=== PATIENT | male | born 1945 | race Caucasian/White ===

== ENCOUNTER → 2023-11-30 07:32 | Outpatient (REF) | payer MEDICARE, SELFPAY ==
[2023-11-30 10:05] LABS: Glycohemoglobin (HgbA1c) 8.4 % (4.0-5.6)
[2023-11-30 10:15] LABS: ALT (SGPT) 38 U/L (0-50); AST (SGOT) 34 U/L (17-59); Albumin 4.1 g/dl (3.5-5.0); Alkaline Phosphatase 84 U/L (38-126); Blood Urea Nitrogen 21 mg/dl (9-20); Calcium 9.1 mg/dl (8.4-10.2); Carbon Dioxide 25 mmol/L (22-30); Chloride 109 mmol/L (98-107); Glucose 85 mg/dl (70-99); Potassium 4.1 mmol/L (3.5-5.1); Sodium 141 mmol/L (135-145); Total Cholesterol 124 mg/dl (50-199); Total Protein 6.7 g/dl (6.3-8.2); Triglyceride 110 mg/dl (10-149); Very Low Density Lipoprotein 22 mg/dl (0-30); eGFR > 60.00
[2023-11-30 10:24] LABS: HDL Cholesterol 42 mg/dl; LDL Cholesterol, Calculated 60 mg/dl
== END ==
LOC: HWLAB 07:32
PROVIDERS: ATTENDING PHYSICIAN Internal Medicine Endocrinology, Diabetes & Metabolism; FAMILY PHYSICIAN Internal Medicine
DX: E11.65 Type 2 diabetes mellitus with hyperglycemia (principal); Z79.4 Long term (current) use of insulin; E78.2 Mixed hyperlipidemia
CPT/HCPCS: 36415; 80053; 80061; 83036

== ENCOUNTER → 2024-01-04 12:39 | Outpatient (REF) | payer MEDICARE, SELFPAY | LOC: RAD 12:39 | PROVIDERS: ATTENDING PHYSICIAN Surgery Vascular Surgery; FAMILY PHYSICIAN Internal Medicine | DX: I73.9 Peripheral vascular disease, unspecified (principal) | CPT/HCPCS: 93922; 93925 ==

== ENCOUNTER → 2024-02-22 07:42 | Outpatient (REF) | payer MEDICARE, SELFPAY ==
[2024-02-22 12:04] LABS: Glycohemoglobin (HgbA1c) 7.3 % (4.0-5.6)
[2024-02-22 12:05] LABS: ALT (SGPT) 27 U/L (0-50); AST (SGOT) 28 U/L (17-59); Albumin 3.9 g/dl (3.5-5.0); Alkaline Phosphatase 88 U/L (38-126); Blood Urea Nitrogen 25 mg/dl (9-20); Calcium 9.9 mg/dl (8.4-10.2); Carbon Dioxide 29 mmol/L (22-30); Chloride 105 mmol/L (98-107); Glucose 140 mg/dl (70-99); HDL Cholesterol 39 mg/dl; LDL Cholesterol, Calculated 61 mg/dl; Potassium 4.5 mmol/L (3.5-5.1); Sodium 142 mmol/L (135-145); Total Bilirubin 0.8 mg/dl (0.2-1.3); Total Cholesterol 126 mg/dl (50-199); Total Protein 6.5 g/dl (6.3-8.2); Triglyceride 131 mg/dl (10-149); Uric Acid 3.7 mg/dl (3.5-8.5); Very Low Density Lipoprotein 26 mg/dl (0-30); eGFR > 60.00
[2024-02-22 12:15] LABS: TSH 2.74 uIU/ml (0.47-4.68)
[2024-02-22 14:02] LABS: Microalbumin, Random Urine 2.1 mg/dl (0.6-1.7); Microalbumin/creatinine Ratio 21.9 mg/g
== END ==
LOC: HWLAB 07:42
PROVIDERS: ATTENDING PHYSICIAN Internal Medicine Endocrinology, Diabetes & Metabolism; FAMILY PHYSICIAN Internal Medicine
DX: E11.65 Type 2 diabetes mellitus with hyperglycemia (principal); Z79.4 Long term (current) use of insulin; I10 Essential (primary) hypertension; E78.2 Mixed hyperlipidemia; M10.9 Gout, unspecified
CPT/HCPCS: 36415; 80053; 80061; 82043; 82570; 83036; 84443; 84550

== ENCOUNTER → 2024-05-24 09:23 | Outpatient (REF) | payer MEDICARE, SELFPAY ==
[2024-05-24 11:54] LABS: ALT (SGPT) 39 U/L (0-50); AST (SGOT) 37 U/L (17-59); Albumin 4.2 g/dl (3.5-5.0); Alkaline Phosphatase 92 U/L (38-126); Blood Urea Nitrogen 22 mg/dl (9-20); Calcium 9.8 mg/dl (8.4-10.2); Carbon Dioxide 26 mmol/L (22-30); Chloride 108 mmol/L (98-107); Glucose 133 mg/dl (70-99); HDL Cholesterol 41 mg/dl; LDL Cholesterol, Calculated 63 mg/dl; Potassium 4.3 mmol/L (3.5-5.1); Sodium 147 mmol/L (135-145); Total Cholesterol 122 mg/dl (50-199); Total Protein 6.7 g/dl (6.3-8.2); Triglyceride 93 mg/dl (10-149); Very Low Density Lipoprotein 18 mg/dl (0-30); eGFR > 60.00
[2024-05-24 12:18] LABS: TSH 2.34 uIU/ml (0.47-4.68)
[2024-05-24 12:58] LABS: Glycohemoglobin (HgbA1c) 7.5 % (4.0-5.6)
== END ==
LOC: HWLAB 09:23
PROVIDERS: ATTENDING PHYSICIAN Internal Medicine Endocrinology, Diabetes & Metabolism; FAMILY PHYSICIAN Internal Medicine
DX: E11.65 Type 2 diabetes mellitus with hyperglycemia (principal); Z79.4 Long term (current) use of insulin
CPT/HCPCS: 36415; 80053; 80061; 83036; 84443

== ENCOUNTER → 2024-08-29 07:52 | Outpatient (REF) | payer MEDICARE, SELFPAY ==
[2024-08-29 09:51] LABS: ALT (SGPT) 43 U/L (0-50); AST (SGOT) 32 U/L (17-59); Albumin 4.1 g/dl (3.5-5.0); Alkaline Phosphatase 79 U/L (38-126); Blood Urea Nitrogen 20 mg/dl (9-20); Calcium 9.4 mg/dl (8.4-10.2); Carbon Dioxide 27 mmol/L (22-30); Chloride 107 mmol/L (98-107); Glucose 162 mg/dl (70-99); HDL Cholesterol 42 mg/dl; LDL Cholesterol, Calculated 62 mg/dl; Potassium 4.4 mmol/L (3.5-5.1); Sodium 143 mmol/L (135-145); Total Cholesterol 125 mg/dl (50-199); Total Protein 6.5 g/dl (6.3-8.2); Triglyceride 106 mg/dl (10-149); Uric Acid 3.3 mg/dl (3.5-8.5); Very Low Density Lipoprotein 21 mg/dl (0-30); eGFR > 60.00
[2024-08-29 10:21] LABS: TSH 2.92 uIU/ml (0.47-4.68)
[2024-08-29 10:30] LABS: Microalbumin, Random Urine 2.1 mg/dl (0.6-1.7)
[2024-08-29 11:08] LABS: Glycohemoglobin (HgbA1c) 7.7 % (4.0-5.6)
[2024-08-29 15:00] LABS: Microalbumin/creatinine Ratio 22.2 mg/g
== END ==
LOC: HWLAB 07:52
PROVIDERS: ATTENDING PHYSICIAN Internal Medicine Endocrinology, Diabetes & Metabolism; FAMILY PHYSICIAN Internal Medicine
DX: M10.9 Gout, unspecified (principal); E11.65 Type 2 diabetes mellitus with hyperglycemia; Z79.4 Long term (current) use of insulin
CPT/HCPCS: 36415; 80053; 80061; 82043; 82570; 83036; 84443; 84550

== ENCOUNTER → 2024-11-29 07:12 | Outpatient (REF) | payer MEDICARE, SELFPAY ==
[2024-11-29 10:15] LABS: Glycohemoglobin (HgbA1c) 7.8 % (4.0-5.6)
[2024-11-29 10:36] LABS: ALT (SGPT) 26 U/L (0-50); AST (SGOT) 24 U/L (17-59); Albumin 3.8 g/dl (3.5-5.0); Alkaline Phosphatase 81 U/L (38-126); Blood Urea Nitrogen 22 mg/dl (9-20); Calcium 9.5 mg/dl (8.4-10.2); Carbon Dioxide 28 mmol/L (22-30); Chloride 106 mmol/L (98-107); Glucose 113 mg/dl (70-99); HDL Cholesterol 41 mg/dl; LDL Cholesterol, Calculated 53 mg/dl; Sodium 141 mmol/L (135-145); Total Bilirubin 0.8 mg/dl (0.2-1.3); Total Cholesterol 120 mg/dl (50-199); Total Protein 6.3 g/dl (6.3-8.2); Triglyceride 131 mg/dl (10-149); Very Low Density Lipoprotein 26 mg/dl (0-30); eGFR > 60.00
== END ==
LOC: HWLAB 07:12
PROVIDERS: ATTENDING PHYSICIAN Internal Medicine Endocrinology, Diabetes & Metabolism; FAMILY PHYSICIAN Internal Medicine
DX: E11.65 Type 2 diabetes mellitus with hyperglycemia (principal); E78.2 Mixed hyperlipidemia
CPT/HCPCS: 36415; 80053; 80061; 83036

== ENCOUNTER 2025-01-28 17:10 | Inpatient (IN) | payer MEDICARE, SELFPAY ==
[2025-01-28] VITALS (10 sets, daily range): BP systolic 97–153; BP diastolic 41–66; BMI 33.1; BMI 31.7
[2025-01-28 12:23] LABS: Urine Albumin 2+ (Neg - Trace); Urine Bilirubin Negative (Negative); Urine Character Clear (Clear); Urine Color Yellow; Urine Glucose 4+ (Negative); Urine Ketone Negative (Negative); Urine Leukocyte 1+ (Negative); Urine Nitrite Negative (Negative); Urine Occult Blood Negative (Negative); Urine Urobilinogen Negative (Neg - 1+)
[2025-01-28 12:33] LABS: Urine Bacteria Few (Negative); Urine Red Blood Cell 0-2 /HPF (0-2)
--- NOTE | 2025-01-28 13:19 | ED.GENMED ---
History of Present Illness
General
Chief Complaint: Urinary Symptoms
Time Seen by Provider: 01/28/25 13:19
History of Present Illness
History of Present Illness:
TIME OF INITIAL ENCOUNTER: 1:20 PM
HPI: The patient presents due to generalized weakness and earlier overnight had increased urinary frequency. The urinary frequency has resolved. The weakness was so severe that he had trouble walking earlier but overall he feels somewhat improved
currently. No shortness of breath. He has chronic lymphedema of the lower extremities but family noted that the left side looked more swollen. He is on Eliquis.
EXAM:
GENERAL: The patient appears generally weak and debilitated
HEENT: Moist oral mucosa
CARDIOVASCULAR: No murmurs, normal heart rate, regular rhythm, No chest wall tenderness
PULMONARY: No respiratory distress, breath sounds are clear and equal
ABDOMEN: Soft with no peritoneal signs, no tenderness
NEUROLOGIC: Fair strength all extremities, no coordination deficits
PSYCHIATRIC: Appropriate mental status, normal insight and judgement
EXTREMITIES: Marked edema to both lower extremities more so on the left
SKIN: Venous stasis right greater than left, some varicosities noted to the right foot, some wounds noted to the toes of the left foot which was noted in 2022 and vascular at that time recommended conservative management
NUMBER AND COMPLEXITY OF PROBLEMS ADDRESSED AT THE ENCOUNTER
� Chronic conditions affecting care: Diabetes/diabetic neuropathy, gait dysfunction, chronic lower extremity edema, IDDM,
� Acute Exacerbation and/or Progression of Chronic Illness: This is an acute problem
� Differential Diagnosis includes: Progression of lymphedema, no evidence of cellulitis, low suspicion for DVT, urinalysis does not suggest infection
AMOUNT AND/OR COMPLEXITY OF DATA TO BE REVIEWED AND ANALYZED
� I performed an independent evaluation of and my interpretation is:
EKG:
CT:
X-rays: Chest x-ray unremarkable
Laboratory Studies: Urinalysis shows clear yellow urine with 1+ leukocyte esterase but only 3-5 white cells; white count 35.7, hemoglobin normal
Other: Verbal report from Dr. Chamberlain shows no DVT however there is some limitation of visualization
� Review of other/old records: The patient was admitted with cellulitis over 2 years ago
� Clinical information was obtained by an independent historian: I spoke to family at bedside
� Prescriptions/Medications Considered but not given:
� Further testing considered but not performed:
RISK OF COMPLICATIONS AND/OR MORBIDITY OR MORTALITY OF PATIENT MANAGEMENT
� Social determinants of health affecting care: Lives at home
� Discussion with other providers: Hospitalist, Dr. Hare for admission
� Escalation of care including admission/observation vs risk of discharge considered: Given the comorbidities with weakness, labs to be obtained. Will obtain ultrasound imaging as he has unilateral worsening of swelling to the
left lower extremity. There is no evidence of acute cellulitis based on physical examination.
ANY OTHER UPDATES:
The patient has new significant leukocytosis with white count of 35.7 and 88% neutrophils. However vital signs are not consistent with sepsis. There is no clear sign of infection based on physical examination. Urinalysis does not show any clear
sign of infection (1+ leukocyte esterase but less than 5 white cells).
While in the ED at around 3:30 PM, it was identified the patient developed a fever. However workup so far is otherwise relatively unremarkable with exception of the leukocytosis.
There does appear to be some left lower extremity faint erythema�will start antibiotics for cellulitis.
Past History
Past History
ED Past Medical History: Arrthythmia, HTN, Hypercholesterolemia, IDDM and Other (appendicitis back surgery chronic left foot drop kidney stones)
ED Past Surgical History: Appendectomy, Orthopedic and Urological
Social History
Tobacco: Non-smoker
Alcohol: None
Drug: None
Personal:
Living: with family
Employment: Retired
Family History
Family History: Diabetes
Phy Exam
Physical Exam
Physical Exam:
See HPI
Course
Orders/Labs/Results
Orders:
Orders
01/28/25 12:08
Urinalysis Reflex To Culture Urgent
Date Specimen was Collected: 01/28/25
Time Specimen was Collected: 12:07
Urine Microscopic Reflex Cult Urgent
Urine Culture Urgent
MICHELET Source: U
Specimen Description:
Date Specimen was Collected: 01/28/25
Time Specimen was Collected: 12:07
01/28/25 13:26
US Legs, Left [US Periph Venous LOWER Ext LT] Urgent
Comment:
Reason For Exam: chronic b/l lymphedema; acute L worse
01/28/25 14:04
Complete Blood Count/With Diff Urgent
01/28/25 14:37
0.9% Sodium Chloride 500 ml [Nss] 500 ml IV BOLUS
CR Chest - 2 Views Urgent
Comment:
Reason For Exam: WBC 35 new
01/28/25 14:51
Acetaminophen [Tylenol] 1,000 mg PO NOW STA
01/28/25 15:04
Comprehensive Metabolic Panel Urgent
Lactic Acid Q4H
Comment: CANCEL 2nd LACTIC ACID IF 1st LACTIC ACID IS LESS THAN 2
NT-proBNP Urgent
Blood Culture Q30M
MICHELET Source: Blood/Venous
Specimen Description:
01/28/25 15:20
Blood Culture Q30M
MICHELET Source: Blood/Venous
Specimen Description:
01/28/25 16:23
CeFAZolin 2 GRAM [Ancef] 2 grams in 10 ml IV NOW
01/28/25 18:45
Lactic Acid Q4H
Comment: CANCEL 2nd LACTIC ACID IF 1st LACTIC ACID IS LESS THAN 2
Abnormal Lab Results
01/28/25 01/28/25 01/28/25
12:08 14:04 15:04
WBC 35.7 H 10^3/uL
(4.8-10.8)
MCH 31.7 H pg
(27.0-31.0)
Abs Immat Gran (auto) 1.1 H 10^3/uL
(0-0.05)
Absolute Neuts (auto) 31.5 H 10^3/uL
(1.4-6.5)
Absolute Monos (auto) 1.2 H 10^3/uL
(0.1-0.6)
Immature Gran % 3.1 H %
(0-0.5)
Neutrophils % 88.3 H %
(42.2-75.2)
Lymphocytes % 4.7 L %
(20.5-51.1)
Chloride 108 H mmol/L
(98-107)
BUN 24 H mg/dl
(9-20)
Glucose 120 H mg/dl
(70-99)
Lactic Acid 2.4 H mmol/L
(0.7-2.0)
Total Bilirubin 1.8 H mg/dl
(0.2-1.3)
Leukocyte Esterase Rfl 1+ A
(Negative)
Urine Bacteria (Reflex) Few A
(Negative)
Urine Glucose 4+ A
(Negative)
Urine Albumin (Reflex) 2+ A
(Neg - Trace)
01/28/25 14:04
01/28/25 15:04
Vital Signs
Initial and Last Documented VS:
Initial Vital Signs
Temp Pulse Resp BP Pulse Ox
36.8 C 91 16 120/55 99
01/28/25 12:02 01/28/25 12:02 01/28/25 12:02 01/28/25 12:02 01/28/25 12:02
Last Documented Vital Signs
Temp Pulse Resp BP Pulse Ox
37.6 C 88 18 153/66 99
01/28/25 16:13 01/28/25 15:15 01/28/25 15:15 01/28/25 15:11 01/28/25 15:15
*Critical Care Note
Total Time (30-74mins, 75-104mins- exclusive of procedures): Not Applicable
ED Attending Note
-
Portions of this chart may have been created with voice recognition software.� Occasional wrong word or��sound alike� substitutions may have occurred due to the inherent limitations of voice recognition software.
Discharge Plan
Departure
Patient Disposition: Admit
Date of Disposition: 01/28/25
Time of Disposition: 16:26
Presentation/result/management discussed w/ accepting MD/DO: Hospitalist
Discharge Problem:
Sepsis
Prescriptions:
No Action
allopurinol 300 MG tablet
300 mg PO DAILY
warfarin [Jantoven] 2 MG tablet
4 mg PO QPM
Patient Comments:
01/21/2021: take w/ 2.5mg = 4.5mg
09/26/22: took 6mg just x 1
hydrochlorothiazide 25 MG tablet
25 mg PO MOWEFR
Patient Comments:
01/21/2021: Pt unsure if supposed to be taking. last filled 11/28/20
irbesartan 150 MG tablet
150 mg PO DAILY
Jardiance 25 MG tablet
25 mg PO DAILY
Insulin Pump [Patient's Own Insulin Pump:] 1 UNITS Pump.Resvr
0 ea SC .CONTINUOUS
Patient Comments:
09/16/22: Pt uses Novolog U-100, gives himself bolus with meals
Rx Instructions:
09/16/22: Pt uses Novolog U-100
Trulicity 1.5 mg/0.5 mL Pen Injector
1.5 mg SC LIM
white petrolatum [Hydrophor] 1 APPLIC ointment
1 applic topical DAILY
metoprolol succinate 25 mg Tablet Extended Release 24 Hr
25 mg PO BID 30 Days Qty: 60 0RF
cefazolin 10 gram Recon Soln
2 g IV Q6H 7 Days Qty: 10 0RF
Rx Instructions:
last day 10/09/22
tramadol 50 mg tablet
50 mg PO Q8H PRN (Reason: Mod sev pain) 5 Days Qty: 12 0RF
Rx Instructions:
as needed for moderate to severe pain
Referrals:
Oliver Talley MD [Family Provider] -
Interventions
Interventions:
*Risk Screen - Suicide Last Done: 01/28/25 12:02
*General Assessment Last Done: 01/28/25 13:19
*Neglect/Abuse Screening Last Done: 01/28/25 12:02
*ED- Fall Risk Assessment Last Done: 01/28/25 13:19
*ED COVID-19 Vaccine History Last Done: 01/28/25 13:19
ED-Male Genitourinary Assessment Last Done: 01/28/25 13:21
Discharge Date and Time
Print Language: [place]
--- NOTE | 2025-01-28 13:24 | EDRN ---
Dr. cunha in room w/pt.
[2025-01-28 14:15] LABS: Hematocrit 48.9 % (39.0-52.0); Hemoglobin 16.6 g/dL (13.0-18.0); Mean Corp Hgb Conc. 33.9 g/dL (33.0-37.0); Mean Corpuscular Hgb 31.7 pg (27.0-31.0); Mean Corpuscular Volume 93.5 fL (80.0-94.0); Mean Platelet Volume 9.8 fL (7.4-10.4); Platelet Count 149 10^3/uL (130-400); Red Blood Cell Count 5.23 10^6/uL (4.70-6.10); Red Cell Dist. Width 14.4 % (11.5-14.5); White Blood Cell Count 35.7 10^3/uL (4.8-10.8)
--- NOTE | 2025-01-28 14:15 | EDRN ---
Dr. Arenas was informed of pt's upper R leg pain and headache, both rated 8/10 enroute to [facility].
[2025-01-28 14:31] LABS: % Basophils 0.5 % (0-2); % Immature Granulocytes 3.1 % (0-0.5); % Lymphocytes 4.7 % (20.5-51.1); % Monocytes 3.4 % (1.7-9.3); % Neutrophils 88.3 % (42.2-75.2); Absolute Basophils 0.2 10^3/uL (0-0.2); Absolute Immature Granulocytes 1.1 10^3/uL (0-0.05); Absolute Lymphocytes 1.7 10^3/uL (1.2-3.4); Absolute Monocytes 1.2 10^3/uL (0.1-0.6); Absolute Neutrophils 31.5 10^3/uL (1.4-6.5); Nucleated Red Blood Cells % 0 % (-)
[2025-01-28] MEDS: NSS 500 IV (15:16)
[2025-01-28] MEDS: TYLENOL 1000 MG PO (15:18)
[2025-01-28 15:25] LABS: Lactic Acid 2.4 mmol/L (0.7-2.0)
[2025-01-28 15:33] LABS: ALT (SGPT) 45 U/L (0-50); AST (SGOT) 48 U/L (17-59); Albumin 4.1 g/dl (3.5-5.0); Alkaline Phosphatase 75 U/L (38-126); Blood Urea Nitrogen 24 mg/dl (9-20); Calcium 9.6 mg/dl (8.4-10.2); Carbon Dioxide 25 mmol/L (22-30); Chloride 108 mmol/L (98-107); Estimated Creatinine Clearance 85 ml/min; Glucose 120 mg/dl (70-99); Potassium 4.8 mmol/L (3.5-5.1); Sodium 140 mmol/L (135-145); Total Bilirubin 1.8 mg/dl (0.2-1.3); Total Protein 6.7 g/dl (6.3-8.2); eGFR > 60.00
[2025-01-28 15:35] LABS: NT-proBNP 1980 pg/ml
--- NOTE | 2025-01-28 16:00 | EDRN ---
Dr. Epps in to speak w/ pt and spouse.
--- NOTE | 2025-01-28 16:24 | HPS.HSE ---
Family Physician
-
Family Physician: Oliver Talley
Chief Complaint
-
generlalized weakness
History of Present Illness
79-year-old with past medical history of hypertension, lymphedema, peripheral artery disease, A-fib presented to us with generalized weakness since last. Pnt stated urinary frequency all night which resolved now. He had a fever of 100 this
morning. As per , his left lower extremity is more redder and swollen than usual. Patient complained of headache. Patient has chronic cough. Denies short of breath. Denied chest pain. Patient denied any abdominal pain, nausea, vomiting or
diarrhea. Patient denied dysuria,hematuria.
Upon arrival he was noted to have elevated WBCs, temp of 101. Patient received Ancef, Tylenol, normal saline in ER. Admitted for further management
Medical History
Past Medical History
Past Medical History: Reports Other
Additional Past Medical History:
Hypertension, lymphedema, peripheral artery disease, hypertension, A-fib, type 2 diabetes, gout, obstructive sleep apnea, kidney stones, GERD,
Past Surgical History: Reports Other
Additional Past Surgical History:
Hernia repair, cardiac ablation, tonsillectomy, kidney surgery, appendectomy, ex lap, evacuation of hematoma, partial omentectomy, lithotripsy, appendectomy, left hallux toenail removed
Social History
Tobacco: Non-smoker
Alcohol: None
Drug: None
Personal:
Living: With Family
Family History
Family History: Not pertinent
Allergies / Home Medications
Allergies reflects when Allergies were last updated in [email or web address].
Home Medications with original date entered in [email or web address]
Allergy/Medication List:
Allergies
Allergy/AdvReac Type Severity Reaction Status Date / Time
Penicillins Allergy Mild Rash Verified 01/28/25 12:04
amoxicillin trihydrate Allergy Rash Verified 01/28/25 12:04
[From Augmentin]
potassium clavulanate Allergy Rash Verified 01/28/25 12:04
[From Augmentin]
rifampin Allergy Rash Verified 01/28/25 12:04
Sulfa (Sulfonamide Allergy Rash Verified 01/28/25 12:04
Antibiotics)
sulfamethoxazole Allergy Rash Verified 01/28/25 12:04
[From Bactrim DS]
trimethoprim Allergy Rash Verified 01/28/25 12:04
[From Bactrim DS]
Home Medications
allopurinol 300 mg tablet 300 mg PO DAILY Gout 09/10/16
Insulin Pump [Patient's Own Insulin Pump:] 0 ea SC .CONTINUOUS Diabetes 01/21/21
empagliflozin 25 mg tablet (Jardiance) 25 mg PO DAILY Diabetes 01/21/21
hydrochlorothiazide 25 mg tablet 25 mg PO MOWEFR Blood pressure 01/21/21
irbesartan 150 mg tablet 150 mg PO DAILY Blood pressure 01/21/21
warfarin 2 mg tablet (Jantoven) 4 mg PO QPM Blood clot prevention/tx 01/21/21
dulaglutide 1.5 mg/0.5 mL subcutaneous pen injector (Trulicity) 1.5 mg SC LIM Diabetes 09/16/22
white petrolatum 42 % topical ointment (Hydrophor) 1 applic topical DAILY to leg wound 09/16/22
metoprolol succinate 25 mg tablet,extended release 24 hr 25 mg PO BID Heart disease/condition 30 days #60 tabs 09/23/22
cefazolin 10 gram solution for injection 2 g IV Q6H 7 days #10 ea 10/02/22
tramadol 50 mg tablet 50 mg PO Q8H PRN Mod sev pain 5 days #12 tabs 10/02/22
Review of Systems
-
Constitutional: Reports Fatigue
EENT: Reports No Symptoms
Respiratory: Reports No Symptoms
Cardiac: Reports No Symptoms
Abdomen/GI: Reports No Symptoms
: Reports Frequency
Musculoskeletal: Reports No Symptoms
Skin: Reports No Symptoms
Neurological: Reports Headache and Weakness
Endocrine: Reports No Symptoms
Hematologic/Lymphatic: Reports No Symptoms
Psych: Reports No Symptoms
Physical Exam
Vital Signs
Vital Signs
Temp Pulse Resp BP Pulse Ox
99.6 F 88 18 153/66 99
01/28/25 16:13 01/28/25 15:15 01/28/25 15:15 01/28/25 15:11 01/28/25 15:15
Physical Exam
General: Well Developed, Well Nourished and No Apparent Distress
HEENT: NormoCephalic, Moist mucous membranes and Atraumatic
Respiratory: Clear
Cardiac: S1/S2 and Regular Rhythm; No Murmur or Rub
GI: Soft, Non Tender, Non Distended and Normal Bowel Sounds; No Organomegaly
Rectal: Deferred by Provider
Musculoskeletal: No Clubbing, No Cyanosis and Other (Bilateral lower extremities lymphedema. Left leg more swollen)
Skin: No Rash
Neuro: Nonfocal/grossly intact
Psych: Calm
Laboratory Results
-
01/28/25 14:04
01/28/25 15:04
Laboratory Results
Lactic Acid 2.4 mmol/L (0.7-2.0) H 01/28/25 15:04
Total Bilirubin 1.8 mg/dl (0.2-1.3) H 01/28/25 15:04
AST 48 U/L (17-59) 01/28/25 15:04
ALT 45 U/L (0-50) 01/28/25 15:04
Alkaline Phosphatase 75 U/L (38-126) 01/28/25 15:04
Data Reviewed
-
Diagnostic Radiology: Report Reviewed by me
Lab Data: Labs Reviewed by me
Impression/Plan
-
# Left lower extremity cellulitis
-Sepsis as evident by WBC 35.7, temp 101
- Chest x-ray negative for acute cardiopulmonary process
- Duplex pending
- Blood and urine culture sent from ER
- IV Ancef continued
- Tylenol as needed for fever and pain
# Generalized weakness likely secondary to cellulitis
- PT/OT consulted
# Gout
- Allopurinol
# Essential hypertension
- HCTZ, irbesartan
# Paroxysmal A-fib
- Obtain EKG
- Metoprolol
- Patient is on eliquis
# type 2 diabetes
- Patient is on insulin pump
-Carb controlled diet
-Jardiance continued
-DM LABORATORY IMMUNOLOGIST consulted
# DVT prophylaxis
- On Eliquis
# CODE STATUS
- Full code
[2025-01-28] MEDS: ANCEF 10 IV ×2 (17:20→23:33)
--- NOTE | 2025-01-28 17:35 | W.PN.UPDATE ---
Update Note
Progress Note Update
This is an addendum to H&P written Mar Mckeon on 01/28/2025. Patient seen examined independently with POLYGRAPH OPERATOR.
79-year-old male past medical history of diabetes on insulin pump, paroxysmal atrial fibrillation on Eliquis, chronic lower extremity lymphedema, prior left lower extremity wounds, hypertension, gout, presenting with generalized weakness, fevers and
chills, increased urinary frequency. Urinary frequency now resolved. Family noticed left leg looks more swollen.
Fever 101.
Patient with sepsis secondary to cellulitis of left lower extremity superimposed on bilateral lower extremity lymphedema.
Check blood cultures. IV fluids. Cefazolin. Outpatient follow-up with lymphedema clinic.
--- NOTE | 2025-01-28 17:50 | EDRN ---
Pt eating boxed lunch at this time.
[2025-01-28 18:14] LABS: PT 16.4 Sec (11.4-14.6)
--- NOTE | 2025-01-28 18:35 | EDRN ---
Second Lactic drawn at this time.
[2025-01-28] MEDS: NSS 1000 IV (18:41)
[2025-01-28] MEDS: ELIQUIS 5 MG PO (20:17)
[2025-01-28] MEDS: ROXICODONE 5 MG PO (20:17)
[2025-01-28] MEDS: TYLENOL 650 MG PO (21:09)
[2025-01-28 21:47] LABS: Glucose - Point of Care 129 mg/dl (70-99)
[2025-01-28] MEDS: PATIENT'S OWN INSULIN PUMP SC (21:55)
[2025-01-29] VITALS (7 sets, daily range): BP systolic 101–124; BP diastolic 50–59
[2025-01-29] MEDS: NSS 1000 IV ×3 (04:15→23:53)
[2025-01-29] MEDS: TYLENOL 650 MG PO ×3 (06:24→19:58)
[2025-01-29 07:50] LABS: PT 19.3 Sec (11.4-14.6)
[2025-01-29 07:55] LABS: Glucose - Point of Care 99 mg/dl (70-99)
[2025-01-29 07:57] LABS: Hematocrit 44.1 % (39.0-52.0); Hemoglobin 14.8 g/dL (13.0-18.0); Mean Corp Hgb Conc. 33.6 g/dL (33.0-37.0); Mean Corpuscular Hgb 31.6 pg (27.0-31.0); Mean Corpuscular Volume 94.2 fL (80.0-94.0); Mean Platelet Volume 10.8 fL (7.4-10.4); Platelet Count 120 10^3/uL (130-400); Red Blood Cell Count 4.68 10^6/uL (4.70-6.10); Red Cell Dist. Width 14.5 % (11.5-14.5); White Blood Cell Count 22.2 10^3/uL (4.8-10.8)
[2025-01-29 08:22] LABS: Blood Urea Nitrogen 23 mg/dl (9-20); Calcium 8.6 mg/dl (8.4-10.2); Carbon Dioxide 24 mmol/L (22-30); Chloride 110 mmol/L (98-107); Estimated Creatinine Clearance 92 ml/min; Glucose 90 mg/dl (70-99); Potassium 3.7 mmol/L (3.5-5.1); Sodium 141 mmol/L (135-145); eGFR > 60.00
[2025-01-29] MEDS: AVAPRO 75 MG PO (08:27)
[2025-01-29] MEDS: TOPROL XL 25 MG PO (08:27)
[2025-01-29] MEDS: ANCEF 10 IV ×3 (08:28→23:54)
[2025-01-29] MEDS: FARXIGA 10 MG PO (08:28)
[2025-01-29] MEDS: ELIQUIS 5 MG PO ×2 (08:28→19:57)
[2025-01-29] MEDS: ZYLOPRIM 300 MG PO (08:28)
[2025-01-29] MEDS: PATIENT'S OWN INSULIN PUMP SC ×4 (08:28→22:02)
[2025-01-29] MEDS: LIPITOR 20 MG PO (08:28)
[2025-01-29 12:00] LABS: Glucose - Point of Care 162 mg/dl (70-99)
--- NOTE | 2025-01-29 12:25 | W.PN.HOSP.TC ---
Today's Communication/Plan
-
Continue IV cefazolin
Follow CBC and cultures
Monitor leg
Supportive care for lymphedema
Assessment / Plan
Assessment / Plan
#Sepsis secondary to nonpurulent cellulitis of LLE
#Chronic lymphedema
-Redness to the lateral LLE, likely infection superimposed on lymphedema, poor antibiotic penetrance
-SIRS positive upon arrival with profound leukocytosis of 35.7, temperature 101 �F, tachycardia
-Was started on IV cefazolin upon arrival following blood and urine cultures
-No signs of purulence on exam today, cultures remain pending, WBC down to 22
-Continue with IV cefazolin empirically, trend CBC and temperature curve, monitor clinically
-Continue with supportive measures for lymphedema including stockings and leg elevation
-Supportive IV fluids and monitor vitals
-OP follow-up with lymphedema clinic
#Generalized weakness
-Likely secondary to neuropathy, deconditioning, lymphedema with cellulitis
-Pending PT/OT consult
#Paroxysmal AF
-Status post pulmonary vein isolation; home meds include Eliquis and metoprolol XL
-Has been in NSR here with heart rate WNL as of this morning
-Continue on telemetry
#IDDM on insulin pump
#Diabetic neuropathy
-Suboptimally controlled with last A1c in November at 7.8%; C/B neuropathy
-Home regimen includes insulin pump and Jardiance daily
-Diabetes team consulted for insulin pump management
-Blood glucose goal 140-180 ideally
#Primary hypertension
-No known history of hypertensive systemic disease
-Home medications include HCTZ and irbesartan, also on metoprolol XL
-Irbesartan with added kidney protective effects in context of diabetes
-Blood pressure currently stable
#Gout
-Home medications include allopurinol 300 mg
-No signs of tophaceous disease on exam
-No signs of flare
#GERARDO not on CPAP
#Obesity with metabolic syndrome
-BMI 31.7 which affects all aspects of care
-No known history of pulmonary hypertension
-Should have OP follow-up with pulmonology
Diet: Carb controlled diet
DVT prophylaxis: Home Eliquis
CODE STATUS: Full code
Anticipated Discharge: 24 - 48 hours
Subjective/Interval History
-
Date of Service: January 29, 2025
Seen and examined at the bedside. No acute events reported overnight. AFVSS this morning
Leukocytosis downtrending on antibiotics. Hemoglobin down trended secondary to dilutional effect.
Patient states his leg is feeling better. Denies any new complaints as of this morning
Objective Data
-
Labs:
Laboratory Results
01/29/25
06:23
WBC 22.2 H
Hgb 14.8
Hct 44.1
Plt Count 120 L
PT 19.3 H
INR 1.60
Sodium 141
Potassium 3.7
Chloride 110 H
Carbon Dioxide 24
BUN 23 H
Creatinine 0.9
Glucose 90
Calcium 8.6
Vital Signs:
Vital Signs
Temp Pulse Resp BP Pulse Ox
99.2 F 71 20 101/50 97
01/29/25 11:00 01/29/25 11:00 01/29/25 11:00 01/29/25 11:00 01/29/25 11:00
I&O
01/28/25 01/29/25 01/30/25
06:59 06:59 06:59
Intake Total 1680 / 1680
Output Total 1000 / 1000
Balance 680 / 680
Review of Systems
-
History Source: Patient
All other systems: Reviewed and negative
Physical Exam
-
General: Well Developed, No Apparent Distress, Comfortable and Obese
HEENT: Normocephalic, Atraumatic, Moist Mucous Membranes and Anicteric
Respiratory: Clear to Auscultation and Non Labored Respirations; Negative Accessory Resp Muscle Use
Cardiac: Regular Rhythm and S1/S2; Negative Murmur, Rub or Gallop
GI: Soft, Nontender, Nondistended and Normal Bowel Sounds
Musculoskeletal: No Clubbing, No Cyanosis and Other (1+ nonpitting edema bilaterally)
Skin: Warm, Dry and Rash (Erythematous macular rash of the lateral LLE at level of calf, no purulence or underlying fluctuance)
Neuro: AO x 3 and Nonfocal/Grossly Intact
Psych: Calm
Data Reviewed
-
Labs: Labs Reviewed by me and Discussed with Patient
[2025-01-29] MEDS: MIRALAX 17 GRAMS PO (15:32)
[2025-01-29 17:24] LABS: Glucose - Point of Care 211 mg/dl (70-99)
[2025-01-29 21:51] LABS: Glucose - Point of Care 137 mg/dl (70-99)
[2025-01-30] VITALS (7 sets, daily range): BP systolic 114–142; BP diastolic 50–74
[2025-01-30 04:07] LABS: Glucose - Point of Care 139 mg/dl (70-99)
[2025-01-30 07:25] LABS: INR 1.31; PT 16.8 Sec (11.4-14.6)
[2025-01-30 07:28] LABS: Glucose - Point of Care 114 mg/dl (70-99)
[2025-01-30 07:41] LABS: Blood Urea Nitrogen 23 mg/dl (9-20); Calcium 8.5 mg/dl (8.4-10.2); Carbon Dioxide 26 mmol/L (22-30); Chloride 111 mmol/L (98-107); Estimated Creatinine Clearance 104 ml/min; Glucose 117 mg/dl (70-99); Sodium 140 mmol/L (135-145); eGFR > 60.00
[2025-01-30 07:50] LABS: % Basophils 0.3 % (0-2); % Eosinophils 0.5 % (0-6); % Immature Granulocytes 0.5 % (0-0.5); % Lymphocytes 10.3 % (20.5-51.1); % Neutrophils 82.4 % (42.2-75.2); Absolute Eosinophils 0.1 10^3/uL (0-0.7); Absolute Immature Granulocytes 0.1 10^3/uL (0-0.05); Absolute Lymphocytes 1.5 10^3/uL (1.2-3.4); Absolute Monocytes 0.9 10^3/uL (0.1-0.6); Absolute Neutrophils 12.1 10^3/uL (1.4-6.5); Hemoglobin 14.5 g/dL (13.0-18.0); Mean Corpuscular Hgb 31.2 pg (27.0-31.0); Mean Corpuscular Volume 94.6 fL (80.0-94.0); Mean Platelet Volume 10.6 fL (7.4-10.4); Nucleated Red Blood Cells % 0 % (-); Platelet Count 112 10^3/uL (130-400); Red Blood Cell Count 4.65 10^6/uL (4.70-6.10); Red Cell Dist. Width 14.5 % (11.5-14.5); White Blood Cell Count 14.7 10^3/uL (4.8-10.8)
[2025-01-30] MEDS: FARXIGA 10 MG PO (07:53)
[2025-01-30] MEDS: AVAPRO 75 MG PO (07:53)
[2025-01-30] MEDS: ELIQUIS 5 MG PO ×2 (07:53→20:22)
[2025-01-30] MEDS: ORETIC 25 MG PO (07:54)
[2025-01-30] MEDS: TOPROL XL 25 MG PO (07:54)
[2025-01-30] MEDS: LIPITOR 20 MG PO (07:54)
[2025-01-30] MEDS: ANCEF 10 IV (07:56)
[2025-01-30] MEDS: ZYLOPRIM 300 MG PO (07:56)
[2025-01-30] MEDS: PATIENT'S OWN INSULIN PUMP SC ×2 (08:06→22:12)
--- NOTE | 2025-01-30 08:20 | PN.DE.MGMTRT ---
Insulin Management
- -
01/30/2025: Diabetes Management consult for insulin pump
This is a 79 year old male well know to me from previous hospital visit, LLE Cellulitis. PMH: HTN, HLD, A-Fib, sleep apnea, IDDM.
Routinely follows with Dr. Braden. Diabetes is managed via an insulin pump, Medtronic 780 with NovoLog insulin and Quick Set infusion sets with the DexCom G7. In addition to pump patient also takes Jardiance 25 mg daily. A1C 7.8%, Cr 0.8. eGFR
>60.
Pt is A/Ox3, sitting up in chair, offers no complaints, able to discuss diabetes care plan. States he does not follow any particular diet at home. Patient is able to utilize his pump without difficulty. Glucose has been stable and in range 99 to
211, FBG 117 V, 114 POC.
Will make no change to pump settings.
Pump settings as follows:
12am 1.3 I:CHO ratio 4
3am 2.20 Correction factor 1:20
8am 2.0 Target: 12am 110 - 125
24 hour basal total 46.9 5am 90 - 110
10pm 110 - 125
Active insulin [address] orders for patient to use own insulin pump. Discussed with Nurse. Pump work sheet to be placed at bedside and explained to pt.
Diabetes History
- -
Type of Diabetes: 2 requiring insulin
Pre-Admission Diabetes Regimen
01/29/25 01/30/25
06:23 06:19
Creatinine 0.9 0.8
Insulin Pump Settings
IP Diabetes Regimen
01/29/25 01/29/25 01/29/25
06:23 11:57 17:21
Glucose 90
POC Glucose 162 H 211 H
01/29/25 01/30/25 01/30/25
21:49 04:05 06:19
Glucose 117 H
POC Glucose 137 H 139 H
01/30/25
07:27
Glucose
POC Glucose 114 H
Meal type: Breakfast
Amount consumed: 90%
Patient Education
[2025-01-30 11:42] LABS: Glucose - Point of Care 151 mg/dl (70-99)
--- NOTE | 2025-01-30 13:26 | W.PN.HOSP.TC ---
Today's Communication/Plan
-
Transition cefazolin to CTX plus Flagyl
Tylenol for likely right hip OA
Bowel regimen
Assessment / Plan
Assessment / Plan
#Sepsis secondary to nonpurulent cellulitis of LLE
#Chronic lymphedema
-Likely infection superimposed on lymphedema with poor antibiotic penetrance; likely polymicrobial with IDDM
-SIRS positive upon arrival with profound leukocytosis of 35.7, temperature 101 �F, tachycardia
-Was started on IV cefazolin upon arrival following blood and urine cultures; cultures NGTD
-White count downtrending however leg does not clinically appear much improved and is still quite red
-Transition cefazolin to IV ceftriaxone with Flagyl for polymicrobial coverage (allergy to penicillins)
-Continue with supportive measures for lymphedema including stockings and leg elevation
-Supportive IV fluids PRN and monitor vitals
-OP follow-up with lymphedema clinic
-If not improving 01/31 consider ID consult
#Right groin pain
-Patient was complaining of intermittent right groin pain that responded to Tylenol
-Has history of hernia s/p surgical repair, examined without any signs of hernia or strangulation
-Obtained x-ray that showed bilateral moderate hip osteoarthritis
-Suspect groin pain is radiated pain from his right hip, continue with Tylenol for now
#Constipation
-States he has not had a bowel movement since 01/27 which is unusual for him
-Did not respond to MiraLAX on 01/29, ordered senna and bisacodyl suppository today
#Generalized weakness
-Likely secondary to neuropathy, deconditioning, lymphedema with cellulitis
-Pending PT/OT consult
#Paroxysmal AF
-Status post pulmonary vein isolation; home meds include Eliquis and metoprolol XL
-Has been in NSR here with heart rate WNL as of this morning
-Continue on telemetry
#IDDM on insulin pump
#Diabetic neuropathy
-Suboptimally controlled with last A1c in November at 7.8%; C/B neuropathy
-Home regimen includes insulin pump and Jardiance daily
-Diabetes team consulted for insulin pump management
-Blood glucose goal 140-180 ideally
#Primary hypertension
-No known history of hypertensive systemic disease
-Home medications include HCTZ and irbesartan, also on metoprolol XL
-Irbesartan with added kidney protective effects in context of diabetes
-Blood pressure currently stable
#Gout
-Home medications include allopurinol 300 mg
-No signs of tophaceous disease on exam
-No signs of flare
#GERARDO not on CPAP
#Obesity with metabolic syndrome
-BMI 31.7 which affects all aspects of care
-No known history of pulmonary hypertension
-Should have OP follow-up with pulmonology
Diet: Carb controlled diet
DVT prophylaxis: Home Eliquis
CODE STATUS: Full code
Anticipated Discharge: > 48 hours
Subjective/Interval History
-
Date of Service: January 30, 2025
Seen and examined at the bedside. No acute events reported overnight. AFVSS this morning
White cell count downtrending. Leg does not seem significantly improved, still red and warm. Patient also states he needs to have a bowel movement
Otherwise denies new complaints. at bedside and updated
Objective Data
-
Labs:
Laboratory Results
01/30/25
06:19
WBC 14.7 H
Hgb 14.5
Hct 44.0
Plt Count 112 L
PT 16.8 H
INR 1.31
Sodium 140
Potassium 4.0
Chloride 111 H
Carbon Dioxide 26
BUN 23 H
Creatinine 0.8
Glucose 117 H
Calcium 8.5
Vital Signs:
Vital Signs
Temp Pulse Resp BP Pulse Ox
98.9 F 69 18 141/69 99
01/30/25 11:46 01/30/25 11:46 01/30/25 11:46 01/30/25 11:46 01/30/25 11:46
I&O
01/29/25 01/30/25 01/31/25
06:59 06:59 06:59
Intake Total 1680 / 1680 2160 / 2160
Output Total 1000 / 1000 1600 / 1600
Balance 680 / 680 560 / 560
Review of Systems
-
History Source: Patient
All other systems: Reviewed and negative
Physical Exam
-
General: Well Developed, No Apparent Distress, Comfortable and Obese
HEENT: Normocephalic, Atraumatic, Moist Mucous Membranes and Anicteric
Respiratory: Clear to Auscultation and Non Labored Respirations; Negative Accessory Resp Muscle Use
Cardiac: Regular Rhythm and S1/S2; Negative Murmur, Rub or Gallop
GI: Soft, Nontender, Nondistended and Normal Bowel Sounds
Musculoskeletal: No Clubbing, No Cyanosis and Other (Chronic nonpitting edema with skin change to bilateral LEs)
Skin: Warm, Dry and Rash (LLE with redness extending up to the knee, warmth to the tissue. No purulence or fluctuance )
Neuro: AO x 3 and Nonfocal/Grossly Intact
Psych: Calm
Data Reviewed
-
Labs: Labs Reviewed by me, Discussed with Patient and Discussed with Family
[2025-01-30] MEDS: FLAGYL 500 MG 100 IV ×2 (14:11→21:02)
[2025-01-30] MEDS: STERILE WATER FOR INJECTION 10 ML IV (14:11)
[2025-01-30] MEDS: ROCEPHIN 1000 MG IV (14:11)
[2025-01-30] MEDS: PATIENT'S OWN INSULIN PUMP 2.6 UNITS SC (14:20)
--- NOTE | 2025-01-30 15:22 | VNURNOTE ---
Home Health Liaison met with patient and spouse at bedside to discuss [facility] nurse/therapy, visits, schedule and homebound status. Patient is agreeable and understands that visits at home will be 2-3 x per week to assess and teach medical management.
He has had [facility] in the past. Patient is aware that [facility] will contact them for start of care in 1-2 days after discharge from . [facility] referral completed in [facility].
Watching if IV antibx ordered at [place]- [facility] will not be able to accept if home IV antibx d/t insurance. SEBASTIÁN Guo aware. Patient and spouse aware.
[2025-01-30] MEDS: TYLENOL 650 MG PO (16:28)
--- NOTE | 2025-01-30 17:09 | CM ---
Alert awake oriented patient who lives with his Greg who lives in a 1 story home with 1 step to enter. He is independent in driving and in all activities of daily living.Spoke with Greg. He uses cane walker .Offered [facility]N he requested [facility]
.Eloisa Chambers [facility] liaison TT referral. .His will drive him home.
Pt [facility] hx / No SNF history
Pharmacy [facility]
PCP DR Graeme Talley
PLAN Home with [facility]
[2025-01-30 17:13] LABS: Glucose - Point of Care 139 mg/dl (70-99)
[2025-01-30] MEDS: PATIENT'S OWN INSULIN PUMP 1.1 UNITS SC (17:27)
[2025-01-30] MEDS: SENNA SYRUP PO (21:08)
[2025-01-30 21:12] LABS: Glucose - Point of Care 205 mg/dl (70-99)
--- NOTE | 2025-01-30 23:02 | PTCARENOTE ---
Pt's HS blood glucose 205. Pt unaware of insulin dosing per insulin pump. Will pass on in report to let staff educator know about pt needing reinforcement about maintaining insulin pump/dosing. Care remains ongoing.
[2025-01-31 03:13] VITALS: BP 126/61
[2025-01-31] MEDS: FLAGYL 500 MG 100 IV ×2 (05:00→14:07)
[2025-01-31 06:53] LABS: % Basophils 0.5 % (0-2); % Eosinophils 1.6 % (0-6); % Immature Granulocytes 0.6 % (0-0.5); % Lymphocytes 16.5 % (20.5-51.1); % Monocytes 7.6 % (1.7-9.3); % Neutrophils 73.2 % (42.2-75.2); Absolute Basophils 0.1 10^3/uL (0-0.2); Absolute Eosinophils 0.2 10^3/uL (0-0.7); Absolute Immature Granulocytes 0.1 10^3/uL (0-0.05); Absolute Lymphocytes 1.7 10^3/uL (1.2-3.4); Absolute Monocytes 0.8 10^3/uL (0.1-0.6); Absolute Neutrophils 7.7 10^3/uL (1.4-6.5); Hematocrit 42.4 % (39.0-52.0); Hemoglobin 14.1 g/dL (13.0-18.0); Mean Corp Hgb Conc. 33.3 g/dL (33.0-37.0); Mean Corpuscular Hgb 31.1 pg (27.0-31.0); Mean Corpuscular Volume 93.6 fL (80.0-94.0); Mean Platelet Volume 11.1 fL (7.4-10.4); Nucleated Red Blood Cells % 0 % (-); Platelet Count 113 10^3/uL (130-400); Red Blood Cell Count 4.53 10^6/uL (4.70-6.10); White Blood Cell Count 10.5 10^3/uL (4.8-10.8)
[2025-01-31 07:02] LABS: INR 1.26; PT 16.3 Sec (11.4-14.6)
--- NOTE | 2025-01-31 07:16 | PN.DE.MGMTRT ---
Insulin Management
- -
01/31/2025: Diabetes Management consult for insulin pump, follow up
Patient admitted 01/28 with LLE cellulitis, know to me from previous hospital admissions and as outpatient. PMH: HTN, HLD, A-Fib, sleep apnea, IDDM.
Routinely follows with Dr. Braden. Diabetes is managed via an insulin pump, Medtronic 780 with NovoLog insulin and Quick Set infusion sets with the DexCom G7. In addition to pump patient also takes Jardiance 25 mg daily. A1C 7.8%, Cr 0.8. eGFR
>60.
Pt is A/Ox3, resting in bed, offers no complaints, able to discuss diabetes care plan. Patient is able to utilize his pump without difficulty. Glucose has been stable and in range 114 to 205.
Fasting glucose 146 POC.
Will make no change to pump settings.
Pump settings as follows:
12am 1.3 I:CHO ratio 4
3am 2.20 Correction factor 1:20
8am 2.0 Target: 12am 110 - 125
24 hour basal total 46.9 5am 90 - 110
10pm 110 - 125
Active insulin 2 hours.
Discussed with Nurse. Pump work sheet at bedside and explained to pt.
Will follow.
Diabetes History
- -
Type of Diabetes: 2 requiring insulin
Pre-Admission Diabetes Regimen
01/30/25
06:19
Creatinine 0.8
Insulin Pump Settings
IP Diabetes Regimen
01/30/25 01/30/25 01/30/25
06:19 07:27 11:40
Glucose 117 H
POC Glucose 114 H 151 H
01/30/25 01/30/25
17:11 21:11
Glucose
POC Glucose 139 H 205 H
Meal type: Lunch
Meal type: Breakfast
Amount consumed: 80%
Amount consumed: 50%
Patient Education
[2025-01-31 07:20] VITALS: BP 117/64
[2025-01-31 07:21] LABS: Blood Urea Nitrogen 23 mg/dl (9-20); Calcium 8.6 mg/dl (8.4-10.2); Carbon Dioxide 29 mmol/L (22-30); Chloride 111 mmol/L (98-107); Estimated Creatinine Clearance 104 ml/min; Glucose 95 mg/dl (70-99); Potassium 3.9 mmol/L (3.5-5.1); Sodium 142 mmol/L (135-145); eGFR > 60.00
[2025-01-31] MEDS: FARXIGA 10 MG PO (08:19)
[2025-01-31] MEDS: TOPROL XL 25 MG PO (08:19)
[2025-01-31] MEDS: ELIQUIS 5 MG PO ×2 (08:19→20:26)
[2025-01-31] MEDS: AVAPRO 75 MG PO (08:19)
[2025-01-31] MEDS: ZYLOPRIM 300 MG PO (08:19)
[2025-01-31] MEDS: LIPITOR 20 MG PO (08:20)
[2025-01-31] MEDS: PATIENT'S OWN INSULIN PUMP SC ×4 (08:24→21:54)
[2025-01-31 08:25] LABS: Glucose - Point of Care 127 mg/dl (70-99)
[2025-01-31 11:15] VITALS: BP 125/60
[2025-01-31 11:38] LABS: Glucose - Point of Care 124 mg/dl (70-99)
[2025-01-31] MEDS: ROCEPHIN 1000 MG IV (14:06)
[2025-01-31] MEDS: STERILE WATER FOR INJECTION 10 ML IV (14:07)
[2025-01-31 14:33] VITALS: BP 106/61
--- NOTE | 2025-01-31 14:39 | W.PN.HOSP.TC ---
Today's Communication/Plan
-
abx
Assessment / Plan
Assessment / Plan
#Sepsis secondary to nonpurulent cellulitis of LLE
#Chronic lymphedema
-Likely infection superimposed on lymphedema with poor antibiotic penetrance; likely polymicrobial with IDDM
-SIRS positive upon arrival with profound leukocytosis of 35.7, temperature 101 �F, tachycardia
-Was started on IV cefazolin upon arrival following blood and urine cultures; cultures NGTD
-White count downtrending however leg does not clinically appear much improved and is still quite red
-Transition cefazolin to IV ceftriaxone
-Continue with supportive measures for lymphedema including stockings and leg elevation
-Supportive IV fluids PRN and monitor vitals
-OP follow-up with lymphedema clinic
#Right groin pain
-Patient was complaining of intermittent right groin pain that responded to Tylenol
-Has history of hernia s/p surgical repair, examined without any signs of hernia or strangulation
-Obtained x-ray that showed bilateral moderate hip osteoarthritis
-Suspect groin pain is radiated pain from his right hip, continue with Tylenol for now
#Constipation
-BM regimen
#Generalized weakness
-Likely secondary to neuropathy, deconditioning, lymphedema with cellulitis
-PT/OT consult
#Paroxysmal AF
-Status post pulmonary vein isolation; home meds include Eliquis and metoprolol XL
-Has been in NSR here with heart rate WNL as of this morning
-Continue on telemetry
#IDDM on insulin pump
#Diabetic neuropathy
-Suboptimally controlled with last A1c in November at 7.8%; C/B neuropathy
-Home regimen includes insulin pump and Jardiance daily
-Diabetes team consulted for insulin pump management
-Blood glucose goal 140-180 ideally
#Primary hypertension
-No known history of hypertensive systemic disease
-Home medications include HCTZ and irbesartan, also on metoprolol XL
-Irbesartan with added kidney protective effects in context of diabetes
-Blood pressure currently stable
#Gout
-Home medications include allopurinol 300 mg
-No signs of tophaceous disease on exam
-No signs of flare
#GERARDO not on CPAP
#Obesity with metabolic syndrome
-BMI 31.7 which affects all aspects of care
-No known history of pulmonary hypertension
-Should have OP follow-up with pulmonology
Diet: Carb controlled diet
DVT prophylaxis: Home Eliquis
CODE STATUS: Full code
Anticipated Discharge: Within 24 hours
Subjective/Interval History
-
Date of Service: January 31, 2025
no acute events, LLE improved erythema
Objective Data
-
Labs:
Laboratory Results
01/31/25
05:37
WBC 10.5
Hgb 14.1
Hct 42.4
Plt Count 113 L
PT 16.3 H
INR 1.26
Sodium 142
Potassium 3.9
Chloride 111 H
Carbon Dioxide 29
BUN 23 H
Creatinine 0.8
Glucose 95
Calcium 8.6
Vital Signs:
Vital Signs
Temp Pulse Resp BP Pulse Ox
97.8 F 70 16 106/61 96
01/31/25 14:33 01/31/25 14:33 01/31/25 14:33 01/31/25 14:33 01/31/25 14:33
I&O
01/30/25 01/31/25 02/01/25
06:59 06:59 06:59
Intake Total 2160 / 2160 1160 / 1160
Output Total 1600 / 1600 1550 / 1550
Balance 560 / 560 -390 / -390
Review of Systems
-
History Source: Patient
All other systems: Not reviewed unless documented
Physical Exam
-
General: Well Developed, No Apparent Distress, Comfortable and Obese
HEENT: Normocephalic, Atraumatic, Moist Mucous Membranes and Anicteric
Respiratory: Clear to Auscultation and Non Labored Respirations; Negative Accessory Resp Muscle Use
Cardiac: Regular Rhythm and S1/S2; Negative Murmur, Rub or Gallop
GI: Soft, Nontender, Nondistended and Normal Bowel Sounds
Musculoskeletal: No Clubbing, No Cyanosis and Other (Chronic nonpitting edema with LLE erythema - foot to sheen)
Skin: Warm, Dry and Rash (LLE with redness extending up to the knee, warmth to the tissue. No purulence or fluctuance )
Neuro: AO x 3 and Nonfocal/Grossly Intact
Psych: Calm
Data Reviewed
-
Diagnostic Radiology: Report Reviewed by me
Labs: Labs Reviewed by me, Discussed with Patient and Discussed with Family
--- NOTE | 2025-01-31 16:11 | CM ---
CM following re: discharge planning.
Reviewed pt's chart, met with pt.
[facility] liaison following.
Please fax discharge instructions to [facility] at [phone]
D/C plan: home with [facility] and family support.
CM will follow with dis charge plan updates as hospitalization progresses
[2025-01-31 17:33] LABS: Glucose - Point of Care 151 mg/dl (70-99)
[2025-01-31 19:27] VITALS: BP 130/63
[2025-01-31 21:16] LABS: Glucose - Point of Care 112 mg/dl (70-99)
[2025-01-31] MEDS: SENNA SYRUP PO (21:55)
[2025-01-31 23:33] VITALS: BP 130/61
[2025-02-01 06:00] VITALS: BMI 32.5
[2025-02-01 07:00] LABS: ALT (SGPT) 26 U/L (0-50); AST (SGOT) 34 U/L (17-59); Albumin 2.9 g/dl (3.5-5.0); Alkaline Phosphatase 66 U/L (38-126); Blood Urea Nitrogen 20 mg/dl (9-20); Calcium 8.6 mg/dl (8.4-10.2); Carbon Dioxide 28 mmol/L (22-30); Chloride 112 mmol/L (98-107); Estimated Creatinine Clearance 120 ml/min; Glucose 102 mg/dl (70-99); Potassium 3.8 mmol/L (3.5-5.1); Sodium 142 mmol/L (135-145); Total Bilirubin 0.9 mg/dl (0.2-1.3); Total Protein 5.1 g/dl (6.3-8.2); eGFR > 60.00
--- NOTE | 2025-02-01 07:04 | PN.DE.MGMTRT ---
Insulin Management
- -
02/01/2025: Diabetes Management consult for insulin pump, follow up
Patient admitted 01/28 with LLE cellulitis, know to me from previous hospital admissions and as outpatient. PMH: HTN, HLD, A-Fib, sleep apnea, IDDM.
Routinely follows with Dr. Braden. Diabetes is managed via an insulin pump, Medtronic 780 with NovoLog insulin and Quick Set infusion sets with Guardian CGM. In addition to pump patient also takes Jardiance 25 mg daily. A1C 7.8%, Cr 0.8. eGFR
>60.
Pt is A/Ox3, resting in bed, offers no complaints, able to discuss diabetes care plan. Patient is able to utilize his pump without difficulty. Glucose has been stable and in range 112 to 151.
Fasting glucose 102, cr .7, eGFR > 60.
Will make no change to pump settings.
Pump settings as follows:
12am 1.3 I:CHO ratio 4
3am 2.20 Correction factor 1:20
8am 2.0 Target: 12am 110 - 125
24 hour basal total 46.9 5am 90 - 110
10pm 110 - 125
Active insulin 2 hours.
Discussed with Nurse. Pump work sheet at bedside and explained to pt.
Will follow.
Diabetes History
- -
Type of Diabetes: 2 requiring insulin
Pre-Admission Diabetes Regimen
01/31/25 02/01/25
05:37 05:50
Creatinine 0.8 0.7
Insulin Pump Settings
IP Diabetes Regimen
01/31/25 01/31/25 01/31/25
05:37 08:24 11:37
Glucose 95
POC Glucose 127 H 124 H
01/31/25 01/31/25 02/01/25
17:32 21:14 05:50
Glucose 102 H
POC Glucose 151 H 112 H
Meal type: Dinner
Meal type: Lunch
Meal type: Breakfast
Amount consumed: 100%
Amount consumed: 100%
Amount consumed: 95%
Patient Education
[2025-02-01 07:15] VITALS: BP 120/63
[2025-02-01 07:37] LABS: Hematocrit 42.7 % (39.0-52.0); Hemoglobin 14.1 g/dL (13.0-18.0); Mean Corpuscular Hgb 30.6 pg (27.0-31.0); Mean Corpuscular Volume 92.6 fL (80.0-94.0); Mean Platelet Volume 10.4 fL (7.4-10.4); Platelet Count 140 10^3/uL (130-400); Red Blood Cell Count 4.61 10^6/uL (4.70-6.10); Red Cell Dist. Width 13.9 % (11.5-14.5); White Blood Cell Count 10.8 10^3/uL (4.8-10.8)
[2025-02-01 08:01] LABS: Glucose - Point of Care 84 mg/dl (70-99)
[2025-02-01] MEDS: PATIENT'S OWN INSULIN PUMP SC ×4 (08:27→21:29)
[2025-02-01] MEDS: LIPITOR 20 MG PO (09:10)
[2025-02-01] MEDS: TOPROL XL 25 MG PO (09:11)
[2025-02-01] MEDS: ORETIC 25 MG PO (09:11)
[2025-02-01] MEDS: FARXIGA 10 MG PO (09:11)
[2025-02-01] MEDS: ZYLOPRIM 300 MG PO (09:11)
[2025-02-01] MEDS: ELIQUIS 5 MG PO ×2 (09:11→19:37)
[2025-02-01] MEDS: AVAPRO 75 MG PO (09:11)
[2025-02-01 10:49] VITALS: BP 139/66; PULSE 65; O2SAT 97
--- NOTE | 2025-02-01 11:48 | CM ---
CM following re: discharge planning.
Reviewed pt's chart, met with pt.
Updated PT and OT evaluations noted, home PT/OT recommended.
[facility] liaison following.
Please fax discharge instructions to [facility] at [phone]
D/C plan: home with [facility] and family support.
CM will follow with dis charge plan updates as hospitalization progresse
[2025-02-01 12:16] LABS: Glucose - Point of Care 105 mg/dl (70-99)
--- NOTE | 2025-02-01 12:51 | W.PN.HOSP.TC ---
Today's Communication/Plan
-
cont abx
elevation of legs
Assessment / Plan
Assessment / Plan
#Sepsis secondary to nonpurulent cellulitis of LLE
#Chronic lymphedema
-Likely infection superimposed on lymphedema with poor antibiotic penetrance; likely polymicrobial with IDDM; patient scratches - advised against this
-SIRS positive upon arrival with profound leukocytosis of 35.7, temperature 101 �F, tachycardia
-Was started on IV cefazolin upon arrival following blood and urine cultures; cultures NGTD
-White count downtrending however leg does not clinically appear much improved and is still quite red
-Transition cefazolin to IV ceftriaxone
-Continue with supportive measures for lymphedema including stockings and leg elevation
-Supportive IV fluids PRN and monitor vitals
-OP follow-up with lymphedema clinic
#Right groin pain, resolved
-Patient was complaining of intermittent right groin pain that responded to Tylenol
-Has history of hernia s/p surgical repair, examined without any signs of hernia or strangulation
-Obtained x-ray that showed bilateral moderate hip osteoarthritis
-Suspect groin pain is radiated pain from his right hip, continue with Tylenol for now
#Constipation
-BM regimen
#Generalized weakness
-Likely secondary to neuropathy, deconditioning, lymphedema with cellulitis
-PT/OT consult
#Paroxysmal AF
-Status post pulmonary vein isolation; home meds include Eliquis and metoprolol XL
-Has been in NSR here with heart rate WNL as of this morning
-Continue on telemetry
#IDDM on insulin pump
#Diabetic neuropathy
-Suboptimally controlled with last A1c in November at 7.8%; C/B neuropathy
-Home regimen includes insulin pump and Jardiance daily
-Diabetes team consulted for insulin pump management
-Blood glucose goal 140-180 ideally
#PVD
-compression stockigns
f/u outpt with vascular
#Primary hypertension
-No known history of hypertensive systemic disease
-Home medications include HCTZ and irbesartan, also on metoprolol XL
-Irbesartan with added kidney protective effects in context of diabetes
-Blood pressure currently stable
#Gout
-Home medications include allopurinol 300 mg
-No signs of tophaceous disease on exam
-No signs of flare
#GERARDO not on CPAP
#Obesity with metabolic syndrome
-BMI 31.7 which affects all aspects of care
-No known history of pulmonary hypertension
-Should have OP follow-up with pulmonology
Diet: Carb controlled diet
DVT prophylaxis: Home Eliquis
CODE STATUS: Full code
Anticipated Discharge: 24 - 48 hours
Subjective/Interval History
-
Date of Service: February 01, 2025
erythema sitll present, appears better
Objective Data
-
Labs:
Laboratory Results
02/01/25
05:50
WBC 10.8
Hgb 14.1
Hct 42.7
Plt Count 140 D
Sodium 142
Potassium 3.8
Chloride 112 H
Carbon Dioxide 28
BUN 20
Creatinine 0.7
Glucose 102 H
Calcium 8.6
Total Bilirubin 0.9
AST 34
ALT 26
Alkaline Phosphatase 66
Vital Signs:
Vital Signs
Temp Pulse Resp BP Pulse Ox
97.9 F 64 18 120/63 96
02/01/25 07:15 02/01/25 07:15 02/01/25 07:15 02/01/25 09:11 02/01/25 07:15
I&O
01/31/25 02/01/25 02/02/25
06:59 06:59 06:59
Intake Total 1160 / 1160 1360 / 1360
Output Total 1550 / 1550 1175 / 1175
Balance -390 / -390 185 / 185
Review of Systems
-
History Source: Patient
All other systems: Not reviewed unless documented
Data Reviewed
-
Diagnostic Radiology: Report Reviewed by me
Labs: Labs Reviewed by me, Discussed with Patient and Discussed with Family
[2025-02-01] MEDS: ROCEPHIN 1000 MG IV (14:21)
[2025-02-01] MEDS: STERILE WATER FOR INJECTION 10 ML IV (14:21)
[2025-02-01 16:59] LABS: Glucose - Point of Care 125 mg/dl (70-99)
[2025-02-01 21:26] LABS: Glucose - Point of Care 176 mg/dl (70-99)
[2025-02-01] MEDS: SENNA SYRUP 8.8 MG PO (21:32)
[2025-02-01 23:32] VITALS: BP 144/68
[2025-02-02 04:43] LABS: Glucose - Point of Care 120 mg/dl (70-99)
[2025-02-02 05:48] VITALS: BMI 32.5
[2025-02-02 07:13] LABS: Hematocrit 45.2 % (39.0-52.0); Hemoglobin 15.4 g/dL (13.0-18.0); Mean Corp Hgb Conc. 34.1 g/dL (33.0-37.0); Mean Corpuscular Hgb 31.4 pg (27.0-31.0); Mean Corpuscular Volume 92.2 fL (80.0-94.0); Mean Platelet Volume 10.2 fL (7.4-10.4); Platelet Count 159 10^3/uL (130-400); Red Cell Dist. Width 14.1 % (11.5-14.5); White Blood Cell Count 11.4 10^3/uL (4.8-10.8)
[2025-02-02 07:15] VITALS: BP 130/76
[2025-02-02 07:16] LABS: ALT (SGPT) 51 U/L (0-50); AST (SGOT) 67 U/L (17-59); Alkaline Phosphatase 72 U/L (38-126); Blood Urea Nitrogen 19 mg/dl (9-20); Calcium 9.1 mg/dl (8.4-10.2); Carbon Dioxide 27 mmol/L (22-30); Chloride 111 mmol/L (98-107); Estimated Creatinine Clearance 105 ml/min; Glucose 113 mg/dl (70-99); Sodium 142 mmol/L (135-145); Total Protein 5.5 g/dl (6.3-8.2); eGFR > 60.00
--- NOTE | 2025-02-02 07:18 | PN.DE.MGMTRT ---
Insulin Management
- -
02/02/2025: Diabetes Management consult for insulin pump, follow up
Patient admitted 01/28 with LLE cellulitis, know to me from previous hospital admissions and as outpatient. PMH: HTN, HLD, A-Fib, sleep apnea, IDDM.
Routinely follows with Dr. Braden. Diabetes is managed via an insulin pump, Medtronic 780 with NovoLog insulin and Quick Set infusion sets with Guardian CGM. In addition to pump patient also takes Jardiance 25 mg daily. A1C 7.8%, Cr 0.8. eGFR
>60.
Pt is A/Ox3, resting in bed, offers no complaints, able to discuss diabetes care plan. Patient is able to utilize his pump without difficulty. Glucose has been stable and in range 84 to 176.
Fasting glucose 120, cr .7, eGFR > 60.
Will make no change to pump settings.
Pump settings as follows:
12am 1.3 I:CHO ratio 4
3am 2.20 Correction factor 1:20
8am 2.0 Target: 12am 110 - 125
24 hour basal total 46.9 5am 90 - 110
10pm 110 - 125
Active insulin 2 hours.
Discussed with Nurse. Pump work sheet at bedside and explained to pt.
Will follow.
Diabetes History
- -
Type of Diabetes: 2 requiring insulin
Pre-Admission Diabetes Regimen
02/02/25
05:58
Creatinine 0.8
Insulin Pump Settings
IP Diabetes Regimen
02/01/25 02/01/25 02/01/25
08:00 12:14 16:58
Glucose
POC Glucose 84 105 H 125 H
02/01/25 02/02/25 02/02/25
21:24 04:42 05:58
Glucose 113 H
POC Glucose 176 H 120 H
Meal type: Dinner
Meal type: Lunch
Meal type: Breakfast
Amount consumed: 100%
Amount consumed: 100%
Amount consumed: 75%
Patient Education
[2025-02-02 07:19] LABS: Glucose - Point of Care 99 mg/dl (70-99)
[2025-02-02] MEDS: PATIENT'S OWN INSULIN PUMP SC ×2 (08:38→12:17)
[2025-02-02] MEDS: ZYLOPRIM 300 MG PO (08:38)
[2025-02-02] MEDS: ELIQUIS 5 MG PO (08:39)
[2025-02-02] MEDS: AVAPRO 75 MG PO (08:39)
[2025-02-02] MEDS: TOPROL XL 25 MG PO (08:39)
[2025-02-02] MEDS: FARXIGA 10 MG PO (08:39)
[2025-02-02] MEDS: DESENEX/MITRAZOL/ZEASORB 1 APPLIC TOPICAL (08:39)
[2025-02-02] MEDS: LIPITOR 20 MG PO (08:39)
[2025-02-02] MEDS: TYLENOL 650 MG PO (08:47)
[2025-02-02 10:16] VITALS: BP 104/55; PULSE 71; O2SAT 98
--- NOTE | 2025-02-02 11:51 | CM ---
CM following re: discharge planning.
Reviewed pt's chart, met with pt.
According to MD pt is medically stable to be discharged today. Pt is aware and he stated his spouse is coming to transport him home. IMM reviewed, placed on chart, pt has a copy.
Pt is aware he will have [facility] services upon the discharge.
Please fax discharge instructions to [facility] at [phone]
D/C plan: home with [facility] and family support. Spouse to transport.
[2025-02-02 12:06] LABS: Glucose - Point of Care 114 mg/dl (70-99)
--- NOTE | 2025-02-02 12:47 | W.PN.HOSP.TC ---
Addendum entered and electronically signed by Marino Jordan MD 02/02/25 15:30:
[id number]
Original Note:
Today's Communication/Plan
-
switch to po abx to complete 14 day course total
advised to come back to the hospital for worsening erythema, fever, chills
F/u CBC, CMP outpt
F/u PCP, Vascular, Urology, Pulmonary outpt
Assessment / Plan
Assessment / Plan
#Sepsis secondary to nonpurulent cellulitis of LLE
#Chronic lymphedema
-Likely infection superimposed on lymphedema with poor antibiotic penetrance; likely polymicrobial with IDDM; patient scratches - advised against this
-SIRS positive upon arrival with profound leukocytosis of 35.7, temperature 101 �F, tachycardia
-Was started on IV cefazolin upon arrival following blood and urine cultures; cultures NGTD
-White count downtrending however leg does not clinically appear much improved and is still quite red
-Transition cefazolin to IV ceftriaxone - Improving - will switch to cefdinir upon dc; complete 14 days course
-Continue with supportive measures for lymphedema including stockings and leg elevation
-Supportive IV fluids PRN and monitor vitals
-OP follow-up with lymphedema clinic
-F/u Vascular outpatient
#Right groin pain, resolved
-Patient was complaining of intermittent right groin pain that responded to Tylenol
-Has history of hernia s/p surgical repair, examined without any signs of hernia or strangulation
-Obtained x-ray that showed bilateral moderate hip osteoarthritis
-Suspect groin pain is radiated pain from his right hip, continue with Tylenol for now
-F/u Urology outpatient
#Constipation
-BM regimen
#Generalized weakness
-Likely secondary to neuropathy, deconditioning, lymphedema with cellulitis
-PT/OT consult
#Paroxysmal AF
-Status post pulmonary vein isolation; home meds include Eliquis and metoprolol XL
-Has been in NSR here with heart rate WNL as of this morning
-Continue on telemetry
#IDDM on insulin pump
#Diabetic neuropathy
-Suboptimally controlled with last A1c in November at 7.8%; C/B neuropathy
-Home regimen includes insulin pump and Jardiance daily
-Diabetes team consulted for insulin pump management
-Blood glucose goal 140-180 ideally
#PVD
-compression stockigns
f/u outpt with vascular
#Primary hypertension
-No known history of hypertensive systemic disease
-Home medications include HCTZ and irbesartan, also on metoprolol XL
-Irbesartan with added kidney protective effects in context of diabetes
-Blood pressure currently stable
#Gout
-Home medications include allopurinol 300 mg
-No signs of tophaceous disease on exam
-No signs of flare
#GERARDO not on CPAP
#Obesity with metabolic syndrome
-BMI 31.7 which affects all aspects of care
-No known history of pulmonary hypertension
-Should have OP follow-up with pulmonology
-Educated on importance of using CPAP
Diet: Carb controlled diet
DVT prophylaxis: Home Eliquis
CODE STATUS: Full code
More than 30 minutes spent in discharge including
Final examination of the patient
Summarizing hospital stay
Instructions for continuing care to all relevant caregivers
Preparation of discharge records, prescriptions, and referral forms
Total time spent (in minutes): 36
Anticipated Discharge: Today
Subjective/Interval History
-
Date of Service: February 02, 2025
No acute events overnight
Objective Data
-
Labs:
Laboratory Results
02/02/25
05:58
WBC 11.4 H
Hgb 15.4
Hct 45.2
Plt Count 159
Sodium 142
Potassium 4.0
Chloride 111 H
Carbon Dioxide 27
BUN 19
Creatinine 0.8
Glucose 113 H
Calcium 9.1
Total Bilirubin 1.0
AST 67 H
ALT 51 H
Alkaline Phosphatase 72
Vital Signs:
Vital Signs
Temp Pulse Resp BP Pulse Ox
98.3 F 66 18 130/76 100
02/02/25 07:15 02/02/25 08:39 02/02/25 07:15 02/02/25 08:39 02/02/25 11:23
I&O
02/01/25 02/02/25 02/03/25
06:59 06:59 06:59
Intake Total 1360 / 1360 1250 / 1250
Output Total 1175 / 1175 1825 / 1825 400 / 400
Balance 185 / 185 -575 / -575 -400 / -400
Review of Systems
-
History Source: Patient
All other systems: Not reviewed unless documented
Physical Exam
-
General: Well Developed, No Apparent Distress, Comfortable and Obese
HEENT: Normocephalic, Atraumatic, Moist Mucous Membranes and Anicteric
Respiratory: Clear to Auscultation and Non Labored Respirations; Negative Accessory Resp Muscle Use
Cardiac: Regular Rhythm and S1/S2; Negative Murmur, Rub or Gallop
GI: Soft, Nontender, Nondistended and Normal Bowel Sounds
Musculoskeletal: No Clubbing, No Cyanosis and Other (Chronic nonpitting edema with LLE erythema -improving.)
Skin: Warm, Dry and Rash (LLE with redness extending up to the knee, warmth to the tissue. No purulence or fluctuance )
Neuro: AO x 3 and Nonfocal/Grossly Intact
Psych: Calm
Data Reviewed
-
Diagnostic Radiology: Report Reviewed by me
Labs: Labs Reviewed by me, Discussed with Patient and Discussed with Family
[2025-02-02] MEDS: STERILE WATER FOR INJECTION 10 ML IV (14:21)
[2025-02-02] MEDS: ROCEPHIN 1000 MG IV (14:22)
--- NOTE | 2025-02-02 14:39 | W.DS.TRANS ---
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
-
Discharge Instructions:
Discharge Diagnosis/Procedures Cellulitis
Diet Diabetic, Carb Controlled,Low Cholesterol,Low
Fat
Activity As tolerated
Blood Work cbc and bmp, LFTs in 3-5 days outpatient
Others Tests vascular studies if needed with Dr. Moss
Instructions:
Stand-Alone Forms:
Changes to Home Medications: Yes
Discharge Medications:
DC Medications w/original date entered in [facility]
allopurinol 300 mg tablet 300 mg PO DAILY Gout 09/10/16
Insulin Pump [Patient's Own Insulin Pump:] 0 ea SC .CONTINUOUS Diabetes 01/21/21
empagliflozin 25 mg tablet (Jardiance) 25 mg PO DAILY Diabetes 01/21/21
hydrochlorothiazide 25 mg tablet 25 mg PO MOWEFR Blood pressure 01/21/21
apixaban 5 mg tablet (Eliquis) 5 mg PO BID Blood Clot Prevention/Tx 01/28/25
atorvastatin 20 mg tablet 20 mg PO DAILY High Cholesterol 01/28/25
irbesartan 75 mg tablet 75 mg PO DAILY Blood Pressure 01/28/25
metoprolol succinate 25 mg tablet,extended release 24 hr 25 mg PO DAILY Heart disease/condition 01/28/25
cefdinir 300 mg capsule 300 mg PO Q12H 10 days #20 caps 02/02/25
miconazole nitrate 2 % topical powder (Miconazorb AF) 1 applic topical BID #85 grams 02/02/25
Home Medication Changes
cefdinir 300 mg capsule 300 mg PO Q12H 10 days #20 caps 02/02/25
miconazole nitrate 2 % topical powder (Miconazorb AF) 1 applic topical BID #85 grams 02/02/25
Pending Results: No
[2025-02-02 14:49] VITALS: BP 107/59
== END 2025-02-02 16:03 | disposition home health service (06) | DRG 872 ==
LOC: 2 NORTH 17:10
PROVIDERS: Registered Nurse; Student in an Organized Health Care Education/Training Program; ADMITTING PHYSICIAN Hospitalist; ATTENDING PHYSICIAN Internal Medicine; EMERGENCY PHYSICIAN Emergency Medicine; FAMILY PHYSICIAN Internal Medicine
DX: A41.9 Sepsis, unspecified organism (principal); L03.116 Cellulitis of left lower limb; R65.10 Systemic inflammatory response syndrome (SIRS) of non-infectious origin without acute organ dysfunction; M10.9 Gout, unspecified; I10 Essential (primary) hypertension; I48.0 Paroxysmal atrial fibrillation; Z79.01 Long term (current) use of anticoagulants; E11.51 Type 2 diabetes mellitus with diabetic peripheral angiopathy without gangrene; Z79.4 Long term (current) use of insulin; Z96.41 Presence of insulin pump (external) (internal); E66.9 Obesity, unspecified; Z68.31 Body mass index [BMI] 31.0-31.9, adult; G47.33 Obstructive sleep apnea (adult) (pediatric); Z91.199 Patient's noncompliance with other medical treatment and regimen due to unspecified reason
CPT/HCPCS: 71046; 73502; 80048; 80053; 81003; 81015; 82962; 83605; 83880; 85025; 85027; 85610; 87040; 87077; 87086; 87147; 93971; 96361; 96374; 97116; 97163; 97167; 97530; 99285

== ENCOUNTER → 2025-02-08 10:01 | Outpatient (REF) | payer MEDICARE, SELFPAY ==
[2025-02-08 11:45] LABS: % Basophils 0.7 % (0-2); % Eosinophils 0.5 % (0-6); % Immature Granulocytes 0.8 % (0-0.5); % Lymphocytes 21.6 % (20.5-51.1); % Monocytes 3.9 % (1.7-9.3); % Neutrophils 72.5 % (42.2-75.2); Absolute Basophils 0.1 10^3/uL (0-0.2); Absolute Eosinophils 0.1 10^3/uL (0-0.7); Absolute Immature Granulocytes 0.1 10^3/uL (0-0.05); Absolute Lymphocytes 2.8 10^3/uL (1.2-3.4); Absolute Monocytes 0.5 10^3/uL (0.1-0.6); Absolute Neutrophils 9.5 10^3/uL (1.4-6.5); Hematocrit 46.6 % (39.0-52.0); Hemoglobin 15.5 g/dL (13.0-18.0); Mean Corp Hgb Conc. 33.3 g/dL (33.0-37.0); Mean Corpuscular Hgb 31.2 pg (27.0-31.0); Mean Corpuscular Volume 93.8 fL (80.0-94.0); Mean Platelet Volume 9.9 fL (7.4-10.4); Nucleated Red Blood Cells % 0 % (-); Platelet Count 251 10^3/uL (130-400); Red Blood Cell Count 4.97 10^6/uL (4.70-6.10); Red Cell Dist. Width 14.3 % (11.5-14.5); White Blood Cell Count 13.1 10^3/uL (4.8-10.8)
[2025-02-08 12:46] LABS: Blood Urea Nitrogen 19 mg/dl (9-20); Calcium 9.5 mg/dl (8.4-10.2); Carbon Dioxide 25 mmol/L (22-30); Chloride 110 mmol/L (98-107); Glucose 145 mg/dl (70-99); Potassium 4.8 mmol/L (3.5-5.1); Sodium 143 mmol/L (135-145); eGFR > 60.00
== END ==
LOC: HWLAB 10:01
PROVIDERS: ATTENDING PHYSICIAN Internal Medicine
DX: L03.119 Cellulitis of unspecified part of limb (principal); E11.40 Type 2 diabetes mellitus with diabetic neuropathy, unspecified; Z79.4 Long term (current) use of insulin; E11.65 Type 2 diabetes mellitus with hyperglycemia; D72.829 Elevated white blood cell count, unspecified
CPT/HCPCS: 36415; 80048; 85025

== ENCOUNTER → 2025-02-15 09:52 | Outpatient (REF) | payer MEDICARE, SELFPAY | LOC: RAD 09:52 | PROVIDERS: ATTENDING PHYSICIAN Physician Assistant; FAMILY PHYSICIAN Internal Medicine; OTHER PHYSICIAN Surgery Vascular Surgery | DX: I73.9 Peripheral vascular disease, unspecified (principal) | CPT/HCPCS: 93922; 93925 ==

== ENCOUNTER 2025-03-07 10:05 | Outpatient (RCR) | payer MEDICARE, SELFPAY | END 2025-03-07 23:59 | disposition home or self-care (01) | LOC: RPT 10:05 | PROVIDERS: ATTENDING PHYSICIAN Podiatrist Foot & Ankle Surgery; FAMILY PHYSICIAN Internal Medicine | DX: I89.0 Lymphedema, not elsewhere classified (principal); Z73.6 Limitation of activities due to disability | CPT/HCPCS: 97162; 97530 ==

== ENCOUNTER 2025-03-08 04:48 | Inpatient (IN) | payer MEDICARE, SELFPAY ==
[2025-03-07 18:07] VITALS: BP 136/67
[2025-03-07 18:57] LABS: % Basophils 0.3 % (0-2); % Immature Granulocytes 0.5 % (0-0.5); % Monocytes 6.4 % (1.7-9.3); % Neutrophils 80.8 % (42.2-75.2); Absolute Basophils 0.1 10^3/uL (0-0.2); Absolute Immature Granulocytes 0.1 10^3/uL (0-0.05); Absolute Lymphocytes 2.9 10^3/uL (1.2-3.4); Absolute Monocytes 1.5 10^3/uL (0.1-0.6); Absolute Neutrophils 19.3 10^3/uL (1.4-6.5); Hematocrit 48.9 % (39.0-52.0); Hemoglobin 16.9 g/dL (13.0-18.0); Mean Corp Hgb Conc. 34.6 g/dL (33.0-37.0); Mean Corpuscular Hgb 31.5 pg (27.0-31.0); Mean Corpuscular Volume 91.2 fL (80.0-94.0); Mean Platelet Volume 10.4 fL (7.4-10.4); Nucleated Red Blood Cells % 0 % (-); Platelet Count 135 10^3/uL (130-400); Red Blood Cell Count 5.36 10^6/uL (4.70-6.10); Red Cell Dist. Width 14.8 % (11.5-14.5); White Blood Cell Count 23.9 10^3/uL (4.8-10.8)
[2025-03-07 20:07] VITALS: BP 129/60
[2025-03-07 20:30] VITALS: BMI 33.8
[2025-03-07 21:00] VITALS: BP 123/68
[2025-03-07 22:00] VITALS: BP 112/63
[2025-03-07 23:00] VITALS: BP 144/70
[2025-03-07 23:08] LABS: ALT (SGPT) 19 U/L (0-50); AST (SGOT) 23 U/L (17-59); Albumin 3.9 g/dl (3.5-5.0); Alkaline Phosphatase 102 U/L (38-126); Blood Urea Nitrogen 19 mg/dl (9-20); Calcium 9.3 mg/dl (8.4-10.2); Carbon Dioxide 27 mmol/L (22-30); Chloride 105 mmol/L (98-107); Estimated Creatinine Clearance 93 ml/min; Glucose 119 mg/dl (70-99); Potassium 3.7 mmol/L (3.5-5.1); Sodium 139 mmol/L (135-145); Total Protein 6.6 g/dl (6.3-8.2); eGFR > 60.00
--- NOTE | 2025-03-07 23:17 | ED.GENMED ---
History of Present Illness
General
Chief Complaint: Weakness
Source: patient and spouse
Exam Limitations: none
Time Seen by Provider: 03/07/25 23:04
History of Present Illness
History of Present Illness:
See MDM
Past History
Past History
ED Past Medical History: Arrthythmia, HTN, Hypercholesterolemia, IDDM and Other (appendicitis back surgery chronic left foot drop kidney stones)
ED Past Surgical History: Appendectomy, Orthopedic and Urological
Social History
Tobacco: Non-smoker
Alcohol: None
Drug: None
Personal:
Living: with family
Employment: Retired
Family History
Family History: Diabetes
Phy Exam
Physical Exam
Physical Exam:
See MDM
Course
Orders/Labs/Results
Orders:
Orders
03/07/25 18:46
CBC/With Diff [Complete Blood Count/With Diff] Urgent
03/07/25 22:37
Comprehensive Metabolic Panel Urgent
03/07/25 23:17
Urinalysis Reflex To Culture Urgent
Date Specimen was Collected: 03/08/25
Time Specimen was Collected: 00:17
CR Chest Portable - 1 View Urgent
Comment:
Reason For Exam: SOB, weakness
Reason Study Needs to be Portable: Unable to Transport
03/07/25 23:20
Electrocardiogram (*1) Urgent
Reason for Study: Fatigue / Weakness
EKG- Treatment ONCE
03/07/25 23:31
Ketorolac [Toradol] 30 mg IV NOW STA
03/07/25 23:58
Troponin I Urgent
Blood Culture Q30M
MICHELET Source: Blood/Venous
Specimen Description:
03/08/25 01:59
Urine Microscopic Reflex Cult Urgent
Blood Culture Q30M
MICHELET Source: Blood/Venous
Specimen Description:
Urine Culture Urgent
MICHELET Source: U
Specimen Description:
Date Specimen was Collected: 03/08/25
Time Specimen was Collected: 00:17
03/08/25 02:48
CefTRIAXone [Rocephin] 1,000 mg IV NOW STA
03/08/25 02:53
Sterile Water [Sterile Water For Injection] 10 ml .ROUTE .[facility]
Abnormal Lab Results
03/07/25 03/07/25 03/08/25
18:46 22:37 01:59
WBC 23.9 H 10^3/uL
(4.8-10.8)
MCH 31.5 H pg
(27.0-31.0)
RDW 14.8 H %
(11.5-14.5)
Abs Immat Gran (auto) 0.1 H 10^3/uL
(0-0.05)
Absolute Neuts (auto) 19.3 H 10^3/uL
(1.4-6.5)
Absolute Monos (auto) 1.5 H 10^3/uL
(0.1-0.6)
Neutrophils % 80.8 H %
(42.2-75.2)
Lymphocytes % 12.0 L %
(20.5-51.1)
Glucose 119 H mg/dl
(70-99)
Total Bilirubin 2.0 H mg/dl
(0.2-1.3)
Urine Ketones 1+ A
(Negative)
Ur Occult Blood Reflex 4+ A
(Negative)
Leukocyte Esterase Rfl 2+ A
(Negative)
Urine RBC >100 A /HPF
(0-2)
Urine WBC (Reflex) 70-80 A /HPF
(0-5)
Urine Bacteria (Reflex) Moderate A
(Negative)
Urine Glucose 4+ A
(Negative)
Urine Albumin (Reflex) 3+ A
(Neg - Trace)
03/07/25 18:46
03/07/25 22:37
Vital Signs
Initial and Last Documented VS:
Initial Vital Signs
Temp Pulse Resp BP Pulse Ox
99.1 F 85 18 136/67 97
03/07/25 18:07 03/07/25 18:07 03/07/25 18:07 03/07/25 18:07 03/07/25 18:07
Last Documented Vital Signs
Temp Pulse Resp BP Pulse Ox
99.1 F 67 23 104/58 99
03/07/25 18:07 03/08/25 03:00 03/08/25 03:00 03/08/25 03:00 03/08/25 03:07
MDM/Problems Addressed
Differential Diagnosis Includes:
Note:
CHIEF COMPLAINT(S)
Weakness and falls.
HISTORY OF PRESENT ILLNESS
The patient is a 79-year-old male with a history of leg swelling and drop foot, presenting with generalized weakness and recent falls. He was brought to the emergency department by ambulance after being unable to lift himself off the floor following
a fall. The patient reports that he has been feeling progressively weaker over the past week without a clear explanation. He also mentions a history of cellulitis near his foot and states that he was hospitalized on January 28 for a similar infection,
likely resulting from a scratch. His caregiver noted that the patients walker was sufficient for mobility until recently.
The patient underwent manipulation therapy at a clinic but was advised against proceeding with further treatment due to concerns about potential infection and worsening leg swelling. At that time, the patients leg displayed increased redness and was
described as 'oversized and blotchy,' but the redness has since improved. He reports frequent urination and lethargy. Previous laboratory results indicated elevated white blood cell counts, with a recent level of 23,000 to 24,000, raising concerns
for possible infection. The patient had recent blood and urine tests, which will be repeated for confirmation in the ED.
Concerns are raised about the need for cautious monitoring due to his fall risk and inability to safely perform activities of daily living.
ADDITIONAL HISTORY OBTAINED FROM SOURCES OTHER THAN THE PATIENT
According to family members, the patient has been increasingly dependent on assistance for ambulation over the last week. The swelling previously appeared red and blotchy, but now looks improved.
REVIEW OF SYSTEMS
- Constitutional: Weakness, lethargy.
- Genitourinary: Frequent urination.
- Musculoskeletal: Leg swelling, drop foot.
PHYSICAL EXAM
General: Weak and fatigued
HEENT: protecting airway. Dry mucous membranes
Neck: appears supple
CV: No evidence of cyanosis. Regular rate and rhythm
Resp: No accessory muscle use
Abd: Non-distended
Extremities: Chronic lymphedema to both legs with venous stasis to distal aspects. Cap refill intact
Neuro: alert
Psych: Normal affect
Skin: Intact
- Nursing notes reviewed and vital signs reviewed.
PLAN
1. Repeat laboratory tests, including complete blood count and urine analysis.
2. Blood cultures to assess for possible systemic infection.
3. Administer intravenous Toradol (ketorolac) for pain management.
4. Conduct chest X-ray to rule out hidden infections.
5. Monitor closely due to fall risk and perform further evaluation of weakness.
6. Consider admission for further observation and management as clinically warranted.
7. Dietary support to address nutrition and hunger while in the ED.
DIFFERENTIAL DIAGNOSIS
The Differential Diagnosis includes, in no particular order and is not limited to:
1. Urinary tract infection
2. Cellulitis
3. Sepsis
4. Electrolyte imbalance
5. Medication side effects
6. Congestive heart failure exacerbation
7. Anemia
8. Neuromuscular disorder
9. Deconditioning
10. Dehydration
CARE-UPDATE
03/08/25 - 00:02
Patients chest X-ray reviewed with no signs of pulmonary edema or pneumonia. No changes to current respiratory management required at this time. Continue with existing treatment protocol.
EKG
My independent EKG interpretation is:
- Sinus rhythm
- Heart rate: 78 beats per minute
- Normal axis
- Presence of PVCs (Premature Ventricular Contractions)
- Presence of PACs (Premature Atrial Contractions)
SUMMARY OF ENCOUNTER
The patient, a 79-year-old male, presented to the emergency department with generalized weakness and recent falls. He was unable to lift himself off the floor following a fall at home. The patient reported progressively worsening weakness over the
past week, frequent urination, lethargy, and a history of leg swelling with possible cellulitis. Concerns included potential infection, as previous lab results indicated elevated white blood cell counts. Management in the ED included a repeat lab
assessment, initiation of antibiotics due to suspected infection, pain management with intravenous Toradol, and consideration for inpatient admission for further observation and management.
DISPOSITION
The decision was made to admit the patient for further evaluation and management due to his significant fall risk, profound weakness, and potential for infection. Admission for physical therapy and case management evaluation was also considered
necessary.
EMERGENCY TREATMENTS ADMINISTERED
Intravenous Toradol (ketorolac) was administered for pain management.
INDEPENDENT REVIEW OF LABS AND INTERPRETATION OF TESTS
My independent review of the complete blood count indicated elevated white blood cell count, consistent with infection.
MEDICAL DECISION MAKING
1. Number & Complexity of Problems: Chronic conditions affecting care: history of leg swelling and cellulitis. Differential diagnoses considered included urinary tract infection, cellulitis, and sepsis.
2. Data Reviewed: Labs and repeat laboratory testing were ordered and reviewed, including complete blood count. Chest X-ray was reviewed with no signs of pulmonary edema or pneumonia.
3. Risk: Consideration of admission was made due to the complexity and risk associated with the patients current condition, fall risk, and potential infection.
PATHOLOGIES TO CONSIDER
- Sepsis (due to patients elevated white blood cell count and possible infection).
*Pulse Oximetry
SaO2: 99
Oxygen Mode of Delivery: Room air
Patient hypoxic: no
*Critical Care Note
Total Time (30-74mins, 75-104mins- exclusive of procedures): Not Applicable
ED Attending Note
-
Portions of this chart may have been created with voice recognition software.� Occasional wrong word or��sound alike� substitutions may have occurred due to the inherent limitations of voice recognition software.
Discharge Plan
Departure
Patient Disposition: Admit
Date of Disposition: 03/08/25
Time of Disposition: 02:52
Admit to: Med/Surg
Presentation/result/management discussed w/ accepting MD/DO: Hospitalist
Discharge Problem:
Weakness, Acute UTI
Prescriptions:
No Action
allopurinol 300 MG tablet
300 mg PO DAILY
hydrochlorothiazide 25 MG tablet
25 mg PO MOWEFR
Jardiance 25 MG tablet
25 mg PO DAILY
Insulin Pump [Patient's Own Insulin Pump:] 1 UNITS Pump.Resvr
0 ea SC .CONTINUOUS
Rx Instructions:
09/16/22: Pt uses Novolog U-100
atorvastatin 20 mg Tablet
20 mg PO DAILY
Eliquis 5 mg Tablet
5 mg PO BID
irbesartan 75 mg tablet
75 mg PO DAILY
metoprolol succinate 25 mg tablet extended release 24 hr
25 mg PO DAILY
Referrals:
Oliver Talley MD [Family Provider, Internal Medicine]
Interventions
Interventions:
*Risk Screen - Suicide Last Done: 03/07/25 18:07
*General Assessment Last Done: 03/07/25 18:07
*Neglect/Abuse Screening Last Done: 03/07/25 20:15
*ED- Fall Risk Assessment Last Done: 03/07/25 20:15
*ED COVID-19 Vaccine History Last Done: 03/07/25 20:15
ED- Cardiac Assessment Last Done: 03/07/25 20:42
ED- Neurological Assessment Last Done: 03/07/25 20:42
ED- Pulmonary Assessment Last Done: 03/07/25 20:42
Discharge Date and Time
Print Language: MAURITIAN
[2025-03-07] MEDS: TORADOL 30 MG IV (23:54)
[2025-03-08] VITALS (19 sets, daily range): BP systolic 87–150; BP diastolic 35–85; BMI 32.0; BMI 32.5
[2025-03-08 00:43] LABS: Troponin I 0.024 ng/ml
[2025-03-08 02:13] LABS: Urine Albumin 3+ (Neg - Trace); Urine Bilirubin Negative (Negative); Urine Character Cloudy (Clear); Urine Color Amber; Urine Glucose 4+ (Negative); Urine Ketone 1+ (Negative); Urine Leukocyte 2+ (Negative); Urine Nitrite Negative (Negative); Urine Occult Blood 4+ (Negative); Urine Specific Gravity 1.025 (<1.030); Urine Urobilinogen Negative (Neg - 1+)
[2025-03-08] MEDS: ROCEPHIN 1000 MG IV ×2 (02:56→23:32)
[2025-03-08 03:06] LABS: Urine Red Blood Cell >100 /HPF (0-2); Urine Squamous Cell None seen /LPF (Few)
[2025-03-08 03:07] LABS: Urine Bacteria Moderate (Negative); Urine White Cell 70-80 /HPF (0-5)
--- NOTE | 2025-03-08 03:57 | HPS.HSE ---
Family Physician
-
Family Physician: Oliver Talley
Chief Complaint
-
Weakness
History of Present Illness
This is a 79-year-old with past medical history significant for atrial fibrillation on anticoagulation with Eliquis, hypertension, insulin dependent diabetes, chronic acquired lymphedema, GERARDO noncompliant with CPAP, diabetic neuropathy who presents
to the emergency department for weakness and a fall at home. While in the ED she was found incidentally to have a urinary tract infection.
Patient himself was reported that over the last few days he has had increased urinary frequency. He denies dysuria or flank pain. He denies nausea or vomiting. He is unaware of any recent issues of urinary tract infection. He was recently in the
hospital for cellulitis for several days for which he was treated with IV antibiotics. Patient reported that he was being seen at lymphedema clinic where they were trying to manipulate his fluid status however there were concern for his weakness
and possibility of developing an infection so was sent to his physician who obtained a urine dipstick with pending urinalysis as well as blood work. Patient was sent home. At home the patient was weak and when he tried walking he fell and could
not get up. EMS was called and patient was brought into the emergency department.
In the emergency department, patient had a Tmax of 99.1, blood pressure was 100/60 with a pulse of 67 and was satting 99% on room air. His chest x-ray was clear. His UA was markedly positive except for nitrites. ECG showed normal sinus rhythm at
a rate of 78 with occasional PVCs. Troponin was negative.
He has a leukocytosis to 24,000, hemoglobin and platelets were normal.
His electrolytes BUN/creatinine were also all normal. LFTs were normal.
Medical History
Past Medical History
Past Medical History: Reports Other
Additional Past Medical History:
Hypertension, lymphedema, peripheral artery disease, hypertension, A-fib, type 2 diabetes, gout, obstructive sleep apnea, kidney stones, GERD,
Past Surgical History: Reports Other
Additional Past Surgical History:
Hernia repair, cardiac ablation, tonsillectomy, kidney surgery, appendectomy, ex lap, evacuation of hematoma, partial omentectomy, lithotripsy, appendectomy, left hallux toenail removed
Social History
Tobacco: Non-smoker
Alcohol: None
Drug: None
Personal:
Living: With Family
Family History
Family History: Not pertinent
Allergies / Home Medications
Allergies reflects when Allergies were last updated in [facility].
Home Medications with original date entered in [facility]
Allergy/Medication List:
Allergies
Allergy/AdvReac Type Severity Reaction Status Date / Time
Penicillins Allergy Mild Rash Verified 01/28/25 12:04
amoxicillin trihydrate Allergy Rash Verified 01/28/25 12:04
[From Augmentin]
potassium clavulanate Allergy Rash Verified 01/28/25 12:04
[From Augmentin]
rifampin Allergy Rash Verified 01/28/25 12:04
Sulfa (Sulfonamide Allergy Rash Verified 01/28/25 12:04
Antibiotics)
sulfamethoxazole Allergy Rash Verified 01/28/25 12:04
[From Bactrim DS]
trimethoprim Allergy Rash Verified 01/28/25 12:04
[From Bactrim DS]
Home Medications
allopurinol 300 mg tablet 300 mg PO DAILY Gout 09/10/16
Insulin Pump [Patient's Own Insulin Pump:] 0 ea SC .CONTINUOUS Diabetes 01/21/21
empagliflozin 25 mg tablet (Jardiance) 25 mg PO DAILY Diabetes 01/21/21
hydrochlorothiazide 25 mg tablet 25 mg PO MOWEFR Blood pressure 01/21/21
irbesartan 150 mg tablet 150 mg PO DAILY Blood pressure 01/21/21
warfarin 2 mg tablet (Jantoven) 4 mg PO QPM Blood clot prevention/tx 01/21/21
dulaglutide 1.5 mg/0.5 mL subcutaneous pen injector (Trulicity) 1.5 mg SC LIM Diabetes 09/16/22
white petrolatum 42 % topical ointment (Hydrophor) 1 applic topical DAILY to leg wound 09/16/22
metoprolol succinate 25 mg tablet,extended release 24 hr 25 mg PO BID Heart disease/condition 30 days #60 tabs 09/23/22
cefazolin 10 gram solution for injection 2 g IV Q6H 7 days #10 ea 10/02/22
tramadol 50 mg tablet 50 mg PO Q8H PRN Mod sev pain 5 days #12 tabs 10/02/22
Review of Systems
-
Constitutional: Reports No Symptoms
EENT: Reports No Symptoms
Respiratory: Reports No Symptoms
Cardiac: Reports No Symptoms
Abdomen/GI: Reports No Symptoms
: Reports No Symptoms
Musculoskeletal: Reports No Symptoms
Skin: Reports No Symptoms
Neurological: Reports No Symptoms
Endocrine: Reports No Symptoms
Hematologic/Lymphatic: Reports No Symptoms
Psych: Reports No Symptoms
Physical Exam
Vital Signs
Vital Signs
Temp Pulse Resp BP Pulse Ox
99.1 F 67 23 104/58 99
03/07/25 18:07 03/08/25 03:00 03/08/25 03:00 03/08/25 03:00 03/08/25 03:07
Physical Exam
General: Well Developed, Well Nourished, No Apparent Distress and Comfortable
HEENT: NormoCephalic, Anicteric, Moist mucous membranes and Atraumatic
Respiratory: Clear
Cardiac: S1/S2 and Regular Rhythm
Breast: Deferred by me
GI: Soft, Non Tender and Normal Bowel Sounds
Rectal: Deferred by Provider
Genito-urinary: Deferred by me
Musculoskeletal: No Clubbing, No Cyanosis, Edema, Left Lower Extremity (marked edema on the L > R, similar to prior per patient) and Edema, Right Lower Extremity
Skin: Warm
Neuro: AO x 3 and Nonfocal/grossly intact
Psych: Calm
Laboratory Results
-
06/24/25 18:46
03/07/25 22:37
Laboratory Results
Total Bilirubin 2.0 mg/dl (0.2-1.3) H 03/07/25 22:37
AST 23 U/L (17-59) 03/07/25 22:37
ALT 19 U/L (0-50) 03/07/25 22:37
Alkaline Phosphatase 102 U/L (38-126) 03/07/25 22:37
Troponin I 0.024 ng/ml 03/07/25 23:58
Data Reviewed
-
Diagnostic Radiology: Image Personally Visualized and interpreted
Medical Tests (Nuc Med, Echo, EKG etc): Image Personally Visualized and interpreted
Lab Data: Labs Reviewed by me
Old Records: Reviewed
Impression/Plan
-
IMPRESSION:
79-year-old male with past medical history significant for proximal atrial fibrillation on anticoagulation, hypertension, obesity, insulin-dependent diabetes, history of diabetic neuropathy with acquired lymphedema presents to the emergency
department after a fall at home. This occurred in the setting of recent episodes of urinary frequency. Denies BPH or kidney stones. Found to have a UTI in the emergency department with leukocytosis to 24,000. There is no skin findings and his
chest x-ray is clear. Patient presented secondary to a fall and weakness at home. There was no head strike.
PLAN:
UTI/weakness -leukocytosis, positive UA although negative nitrites but no mechanism of UTI in this gentleman. Has had resistant E. coli in the urine in 2013 and 13. No recent UTIs.
- Admit to MedSurg
- Urine cultures pending
- Agree with continuing ceftriaxone for now
- No need for hydration
- Broaden antibiotics if patient becomes febrile
- PT evaluation
Essential hypertension
- HCTZ, irbesartan
Paroxysmal A-fib -rate controlled with PVCs
-Continue metoprolol
- Continue eliquis
diabetes - Patient is on insulin pump
-Carb controlled diet
-Jardiance continued
-DM MAIL ROOM CLERK consulted
DVT prophylaxis - On Eliquis
CODE STATUS - Full code
[2025-03-08 05:57] LABS: Hematocrit 45.2 % (39.0-52.0); Hemoglobin 15.2 g/dL (13.0-18.0); Mean Corp Hgb Conc. 33.6 g/dL (33.0-37.0); Mean Corpuscular Hgb 31.2 pg (27.0-31.0); Mean Corpuscular Volume 92.8 fL (80.0-94.0); Mean Platelet Volume 9.7 fL (7.4-10.4); Platelet Count 122 10^3/uL (130-400); Red Blood Cell Count 4.87 10^6/uL (4.70-6.10); Red Cell Dist. Width 14.7 % (11.5-14.5); White Blood Cell Count 18.7 10^3/uL (4.8-10.8)
[2025-03-08 06:14] LABS: Blood Urea Nitrogen 22 mg/dl (9-20); Calcium 9.1 mg/dl (8.4-10.2); Carbon Dioxide 25 mmol/L (22-30); Chloride 107 mmol/L (98-107); Estimated Creatinine Clearance 84 ml/min; Glucose 136 mg/dl (70-99); Potassium 3.7 mmol/L (3.5-5.1); Sodium 140 mmol/L (135-145); eGFR > 60.00
--- NOTE | 2025-03-08 07:06 | PN.DE.MGMTRT ---
Insulin Management
- -
03/08/2025: Diabetes Management consult for insulin pump
Patient admitted 03/08 with weakness and falls. Patient known to me from previous hospital admissions and as outpatient. PMH: HTN, HLD, A-Fib, sleep apnea, IDDM.
Routinely follows with Dr. Braden. Diabetes is managed via an insulin pump, Medtronic 780 with NovoLog insulin and Quick Set infusion sets with Guardian CGM. In addition to pump patient also takes Jardiance 25 mg daily. A1C 7.8%, Cr 0.8. eGFR
>60.
Pt is A/Ox3, resting in bed, offers no complaints, able to discuss diabetes care plan. Patient is able to utilize his pump without difficulty. Glucose has been stable and in range 119 to 137.
Fasting glucose 136, cr 1, eGFR > 60.
Will make no change to pump settings.
Pump settings as follows:
12am 1.3 I:CHO ratio 4
3am 2.20 Correction factor 1:20
8am 2.0 Target: 12am 110 - 125
24 hour basal total 46.9 5am 90 - 110
10pm 110 - 125
Active insulin 2 hours.
Discussed with Nurse. Pump work sheet at bedside and explained to pt.
Will follow.
Diabetes History
- -
Type of Diabetes: 2 requiring insulin
Pre-Admission Diabetes Regimen
03/07/25 03/07/25 03/08/25
18:46 22:37 05:36
Creatinine Cancelled 0.9 1.0
Insulin Pump Settings
IP Diabetes Regimen
03/07/25 03/07/25 03/08/25
18:46 22:37 05:36
Glucose Cancelled 119 H 136 H
Patient Education
[2025-03-08 08:16] LABS: Glucose - Point of Care 137 mg/dl (70-99)
[2025-03-08] MEDS: AVAPRO 75 MG PO (08:17)
[2025-03-08] MEDS: FARXIGA 10 MG PO (08:18)
[2025-03-08] MEDS: TOPROL XL 25 MG PO (08:18)
[2025-03-08] MEDS: ZYLOPRIM 300 MG PO (08:19)
[2025-03-08] MEDS: LIPITOR 20 MG PO (08:19)
[2025-03-08] MEDS: ELIQUIS 5 MG PO ×2 (08:19→20:22)
[2025-03-08] MEDS: ORETIC 25 MG PO (08:20)
[2025-03-08] MEDS: PT'S OWN INSULIN PUMP - NovoLOG SC ×2 (08:29→11:40)
[2025-03-08 08:31] LABS: Hepatitis C Antibody Negative (Negative)
--- NOTE | 2025-03-08 10:44 | CM ---
CM reviewed chart and met with pt bedside in ED. Pt lives with his 1 story home, [address].
Independent at baseline for ADLs, personal care, driving and ambulation. Has a cane and rolling walker, alternates using both for ambulation.
No other DMe in home, pt is current with [facility], no hx SNF
PCP: Oliver Talley
Pharmacy: [facility]
Discharge plan: Anticipate home with [facility], watch for needs
[2025-03-08] MEDS: TYLENOL 650 MG PO (11:35)
[2025-03-08 11:39] LABS: Glucose - Point of Care 112 mg/dl (70-99)
[2025-03-08] MEDS: TORADOL 15 MG IV (12:24)
--- NOTE | 2025-03-08 13:47 | W.PN.UPDATE ---
Update Note
Progress Note Update
Seen and admitted by .
Admitted for weakness, urinary frequency. Noted to have abnormal urinalysis and concern for UTI. CT of the abdomen pelvis shows acute cystitis and no obstructive kidney stones. Continue with antibiotics for possible UTI and follow clinical
response.
[2025-03-08 14:32] LABS: Blood Urea Nitrogen 23 mg/dl (9-20); Calcium 8.9 mg/dl (8.4-10.2); Carbon Dioxide 25 mmol/L (22-30); Chloride 106 mmol/L (98-107); Estimated Creatinine Clearance 84 ml/min; Glucose 170 mg/dl (70-99); Potassium 3.8 mmol/L (3.5-5.1); Sodium 136 mmol/L (135-145); eGFR > 60.00
[2025-03-08 14:58] LABS: Hematocrit 43.4 % (39.0-52.0); Hemoglobin 14.9 g/dL (13.0-18.0); Mean Corp Hgb Conc. 34.3 g/dL (33.0-37.0); Mean Corpuscular Hgb 31.7 pg (27.0-31.0); Mean Corpuscular Volume 92.3 fL (80.0-94.0); Mean Platelet Volume 10.3 fL (7.4-10.4); Platelet Count 123 10^3/uL (130-400); Red Cell Dist. Width 14.6 % (11.5-14.5); White Blood Cell Count 18.3 10^3/uL (4.8-10.8)
--- NOTE | 2025-03-08 16:04 | PTCARENOTE ---
Received patient from ED via stretcher. Pulled over from stretcher to bed. AAOx3. Assessed and oriented to room. Call ya in close reach.
[2025-03-08 16:41] LABS: Glucose - Point of Care 164 mg/dl (70-99)
[2025-03-08] MEDS: PT'S OWN INSULIN PUMP - NovoLOG 0.1 UNIT SC (16:50)
[2025-03-08 21:19] LABS: Glucose - Point of Care 174 mg/dl (70-99)
[2025-03-08] MEDS: PT'S OWN INSULIN PUMP - NovoLOG 0.2 UNIT SC (21:27)
[2025-03-08] MEDS: STERILE WATER FOR INJECTION 10 ML IV (23:32)
[2025-03-09 07:00] VITALS: BP 112/57
[2025-03-09 07:20] LABS: Glucose - Point of Care 98 mg/dl (70-99)
--- NOTE | 2025-03-09 07:24 | PN.DE.MGMTRT ---
Insulin Management
- -
03/09/2025: Diabetes Management consult for insulin pump
Patient admitted 03/08 with weakness and falls. Patient known to me from previous hospital admissions and as outpatient. PMH: HTN, HLD, A-Fib, sleep apnea, IDDM.
Routinely follows with Dr. Braden. Diabetes is managed via an insulin pump, Medtronic 780 with NovoLog insulin and Quick Set infusion sets with Guardian CGM. In addition to pump patient also takes Jardiance 25 mg daily. A1C 7.8%, Cr 0.8. eGFR
>60.
Pt is A/Ox3, resting in bed, offers no complaints, able to discuss diabetes care plan. Patient is able to utilize his pump without difficulty. Glucose has been stable and in range 112 to 174.
Fasting glucose 98, cr 1, eGFR > 60.
Will make no change to pump settings.
Pump settings as follows:
12am 1.3 I:CHO ratio 4
3am 2.20 Correction factor 1:20
8am 2.0 Target: 12am 110 - 125
24 hour basal total 46.9 5am 90 - 110
10pm 110 - 125
Active insulin 2 hours.
Discussed with Nurse. Pump work sheet at bedside and explained to pt.
Will follow.
Diabetes History
- -
Type of Diabetes: 2 requiring insulin
Pre-Admission Diabetes Regimen
03/08/25
14:02
Creatinine 1.0
Insulin Pump Settings
IP Diabetes Regimen
03/08/25 03/08/25 03/08/25
08:14 11:38 14:02
Glucose 170 H
POC Glucose 137 H 112 H
03/08/25 03/08/25 03/09/25
16:39 21:18 07:19
Glucose
POC Glucose 164 H 174 H 98
Patient Education
[2025-03-09] MEDS: FARXIGA 10 MG PO (08:27)
[2025-03-09] MEDS: AVAPRO 75 MG PO (08:27)
[2025-03-09] MEDS: ZYLOPRIM 300 MG PO (08:27)
[2025-03-09] MEDS: LIPITOR 20 MG PO (08:28)
[2025-03-09] MEDS: TOPROL XL 25 MG PO (08:28)
[2025-03-09] MEDS: ELIQUIS 5 MG PO ×2 (08:29→19:12)
[2025-03-09] MEDS: PT'S OWN INSULIN PUMP - NovoLOG SC ×4 (10:51→21:10)
--- NOTE | 2025-03-09 11:23 | W.PN.HOSP.TC ---
Today's Communication/Plan
-
Continue ceftriaxone
Continue PT
Consult ID
Assessment / Plan
Assessment / Plan
IMPRESSION:
79-year-old male with past medical history significant for proximal atrial fibrillation on anticoagulation, hypertension, obesity, insulin-dependent diabetes, history of diabetic neuropathy with acquired lymphedema presents to the emergency
department after a fall at home. This occurred in the setting of recent episodes of urinary frequency. Denies BPH or kidney stones. Found to have a UTI in the emergency department with leukocytosis to 24,000. There is no skin findings and his
chest x-ray is clear. Patient presented secondary to a fall and weakness at home. There was no head strike.
PLAN:
UTI/weakness -leukocytosis, positive UA and had frequency of urine. No recent UTIs.
- CT of the abdomen pelvis shows cystitis and nonobstructive renal stones.
- Blood culture returning positive and interestingly 1 showing gram-positive cocci in cluster 1 showing gram-negative bacilli. Continue with ceftriaxone for now. Consult ID.
- Urine cultures pending
- PT evaluation
Bladder scan did not show any high residuals.
Essential hypertension
- HCTZ, irbesartan
Paroxysmal A-fib -rate controlled with PVCs
-Continue metoprolol
- Continue eliquis
diabetes - Patient is on insulin pump
-Carb controlled diet
-Jardiance continued
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
DVT prophylaxis - On Eliquis
CODE STATUS - Full code
Total time spent on today's encounter was 52 minutes which included time spent in counseling the patient/family regarding diagnosis and treatment plan as listed above, goals of care, and symptom management. Case was discussed with nursing staff,
specialists, and care coordinators/case management. All labs and imaging personally reviewed by me. Remainder the time spent in detailed review of previous records, lab data, imaging, and other medical provider documentation.
Anticipated Discharge: > 48 hours
Subjective/Interval History
-
Date of Service: March 09, 2025
Frequency of urination is okay and no worse. No dysuria.
No fever chills.
Not sure if he is still weak has not gotten out of the bed.
No shortness of breath or chest pain.
Objective Data
-
Vital Signs:
Vital Signs
Temp Pulse Resp BP Pulse Ox
98.3 F 74 16 113/57 95
03/09/25 07:00 03/09/25 08:27 03/09/25 07:00 03/09/25 08:27 03/09/25 10:19
I&O
03/08/25 03/09/25 03/10/25
06:59 06:59 06:59
Intake Total 480 / 480 120 / 120
Output Total 200 / 200 625 / 625 100 / 100
Balance -200 / -200 -145 / -145 20 / 20
Physical Exam
-
General: No Apparent Distress
Respiratory: Non Labored Respirations; Negative Accessory Resp Muscle Use
Cardiac: Regular Rhythm and S1/S2; Negative Tachycardic
GI: Soft
Musculoskeletal: Edema, Right Lower Extrem and Edema, Left Lower Extrem
Neuro: AO x 3
Psych: Calm
Data Reviewed
-
Labs: Labs Reviewed by me
--- NOTE | 2025-03-09 11:48 | CON.ID ---
Consultation
-
Date/Time Consultation Requested: March 09, 2025 1045
Date/Time Consultation Performed: March 09, 2025 1150
Requesting Provider: Dr. Ankush Mendiola
Performing Provider: Dr. Shasta Torres
Reason for Consultation: UTI
Chief Complaint / Past History
Chief Complaint
Weakness
History of Present Illness
79-year-old male with history of diabetes mellitus, neuropathy, lymphedema, venous insufficiency, nephrolithiasis, presented to the ER on March 08 due to fall. Patient reports he has been feeling weak lately. He complains of urinary frequency for
the past 3 to 4 days. No dysuria. No flank pain. No fevers or chills. In the ER white count 23.9. UA 2+ leukocyte esterase, 70-80 white blood cells. Urine culture gram-negative jeimy. He was started on ceftriaxone. No h/o frequent UTI.
Past History
Additional Past Medical History:
Diabetes mellitus
Neuropathy
Hypertension
Atrial fibrillation status post cardiac ablation
Lower extremity lymphedema, follows at lymphedema clinic
Venous insufficiency
Gout
Nephrolithiasis, history of lithotripsy
PAD
Sleep apnea
Appendectomy
Partial omentectomy
Laminectomies
Allergy History:
Penicillins Allergy (Mild, Verified 03/07/25 18:15)
Rash
amoxicillin trihydrate (From Augmentin) Allergy (Verified 03/07/25 18:15)
Rash
potassium clavulanate (From Augmentin) Allergy (Verified 03/07/25 18:15)
Rash
rifampin Allergy (Verified 03/07/25 18:15)
Rash
Sulfa (Sulfonamide Antibiotics) Allergy (Verified 03/07/25 18:15)
Rash
sulfamethoxazole (From Bactrim DS) Allergy (Verified 03/07/25 18:15)
Rash
trimethoprim (From Bactrim DS) Allergy (Verified 03/07/25 18:15)
Rash
Medications Reviewed: Yes
Current Antibiotics:
Ceftriaxone
Social History
Tobacco: Non-Smoker
Alcohol: None
Drug: None
Personal:
Family History
Family History: Not Pertinent
Review of Systems
Review of Systems
General: Change in Appetite; Negative Fever or Chills
HEENT: Negative Sinus Problems or Headache
Cardiovascular: Negative Chest Pain or Dyspnea
Respiratory: Negative Dyspnea or Cough
Gasteroenterology: Negative Nausea, Vomiting or Diarrhea
Genital / Urological: Negative Dysuria or Flank Pain
Endocrine: Weakness
Neurological: Negative Dizziness
All systems: All other systems were reviewed and were negative
Vital Signs
Temp Pulse Resp BP Pulse Ox
98.3 F 74 16 113/57 95
03/09/25 07:00 03/09/25 08:27 03/09/25 07:00 03/09/25 08:27 03/09/25 10:19
Physical Exam
Physical Exam
Constitutional: No Acute Distress and Obese
Head: Other (No frontal or max or sinus tenderness.)
Eyes: No Conjunctival Hemorrhage and Sclera Anicteric
Cardiovascular: Regular Rate and S1/S2
Pulmonary: Clear
Gastrointestinal: Soft, Non Tender and Non Distended
Genito-Urinary: Negative Suprapubic Tenderness or CVA Tenderness
Extremities: Edema (BLE lymphedema) and Venous Insufficiency
Neurological: AO x 3
Lab / Diagnostic Study Results
03/08/25 14:02
03/08/25 14:02
Abs Immat Gran (auto) 0.1 10^3/uL (0-0.05) H 03/07/25 18:46
Absolute Neuts (auto) 19.3 10^3/uL (1.4-6.5) H 03/07/25 18:46
Absolute Lymphs (auto) 2.9 10^3/uL (1.2-3.4) 03/07/25 18:46
Absolute Monos (auto) 1.5 10^3/uL (0.1-0.6) H 03/07/25 18:46
Absolute Basos (auto) 0.1 10^3/uL (0-0.2) 03/07/25 18:46
Immature Gran % 0.5 % (0-0.5) 03/07/25 18:46
Neutrophils % 80.8 % (42.2-75.2) H 03/07/25 18:46
Lymphocytes % 12.0 % (20.5-51.1) L 03/07/25 18:46
Monocytes % 6.4 % (1.7-9.3) 03/07/25 18:46
Eosinophils % 0.0 % (0-6) 03/07/25 18:46
Basophils % 0.3 % (0-2) 03/07/25 18:46
Ur Squamous Epith Cells None seen /LPF (Few) 03/08/25 01:59
Microbiology Results
Micro:
03/08/25 01:59 Blood Culture - Preliminary
Blood/Venous Positive culture in progress
Gram Stain - Preliminary
03/08/25 01:59 Urine Culture - Preliminary
Urine Gram negative bacilli
03/07/25 23:58 Blood Culture - Preliminary
Blood/Venous No Growth in 24 hours- Final report to follow
03/08/25 CT a/p: SEVERE ACUTE CYSTITIS. 3 mm nonobstructing left intrarenal calculus. 3.8 cm benign-appearing, fat-containing, rim calcified subcapsular mass located along the posterior cortex of the midpole of the right kidney which appears
unchanged.
03/07/25 CXR: No acute cardiopulmonary process.
Assessment / Plan
# GNR UTI
# Leukocytosis
- CT a/p: severe acute cystitis
- Pt with remote h/o ESBL-Ecoli in urine
- DC ceftriaxone.
- Start Ertapenem 1g IV q24 pending cx data.
-Trend wbc.
# CoNS bacteremia 1 of 2 sets = contaminant.
- No need for abx.
# Conditions VETERANS ADVISER
Diabetes mellitus
Neuropathy
Hypertension
Atrial fibrillation status post cardiac ablation
Lower extremity lymphedema, follows at lymphedema clinic
Venous insufficiency
Gout
Nephrolithiasis, history of lithotripsy
PAD
Sleep apnea
Appendectomy
Partial omentectomy
Laminectomies
[2025-03-09 12:33] LABS: Glucose - Point of Care 169 mg/dl (70-99)
--- NOTE | 2025-03-09 13:00 | CM ---
Addendum entered by Alicia Laureano 03/09/25 16:23:
Met with patient and at bedside to discuss SNF recommendation; patient open to home health but not willing to go to SNF
Patient and will continue to discuss and have final decision tomorrow
Stucco Laborer will follow up tomorrow and send appropriate referrals when disposition decision is finalized
Addendum entered by Alicia Laureano 03/09/25 13:37:
Patient not ready to identify SNF site preferences
Original Note:
Met with patient at bedside; explained that PT recommended SNF when stable for discharge
List of SNF options provided. Patient instructed to identify 3 site preferences for referrals
Patient reported he will discuss with his
Stucco Laborer will follow up for site preferences
--- NOTE | 2025-03-09 14:43 | PN.CDI ---
CDI
- -
CDI:
Physician Documentation Request
Admit Date: 03/08/25 04:48
Dear Doctor Maury,
Please review the following and provide your response in the progress notes.
Clinical Indicators:
Pt admitted with UTI on ceftriaxone
Documented per ED,' complete blood count indicated elevated white blood cell count, consistent with infection...'
On admission WBC 23.9, Respirations 28
Please clarify which of the following most accurately describes the status of the patient's infection:
Sepsis-POA
- Systemic manifestations of infection, with 2 or more SIRS criteria which include:
- Fever >100.9 degrees F or hypothermia < 96.8 degrees F
- Leukocytosis - WBC > 12,000 or leukopenia - WBC < 4,000 or > 10% bands
- Tachycardia > 90 beats per minute
- Tachypnea - RR > 20 breaths per minute or PaCO2 , 32mmHg
Source: Merck Manual 2013
UTI only , Without Systemic Illness
Other ( please specify)
Use of terms such as suspected, likely, concern for, or probable (associated with a specific diagnosis that is being evaluated, monitored, or treated as if it exists) are acceptable and can be coded in the inpatient setting, when documented at the
time of discharge.
Thank you,
Bobbi Peña RN
CDI Specialist
[place] [facility]
Please use your independent medical judgment in providing your response.
[2025-03-09 15:28] VITALS: BP 142/82
[2025-03-09] MEDS: INVANZ 60 MG IV (16:33)
[2025-03-09 16:53] LABS: Glucose - Point of Care 105 mg/dl (70-99)
[2025-03-09] MEDS: TORADOL 15 MG IV (19:55)
--- NOTE | 2025-03-09 20:17 | W.PN.UPDATE ---
Update Note
Progress Note Update
- at bedside, requested to speak to the covering provider. Patient is shaking, feeling cold, small amount of urine output.
-On assessment, patient is complaining of feeling cold and shaking, RLQ discomfort that he mentioned that not new. Bladder scan is 90cc. Abd/PLVS CT done 03/08/25 and result noted.
-Patient denies sob or any respiratory symptoms.
-Checked temp. patient is febrile with temp 102.2. IV Tylenol ordered.
-Patient started today on Ertapenem by ID team.
-CBC, bmp, mag, and lactic acid ordered.
-Discussed the plan with the at bedside.�
-Lactic is 2.7 will trend lactic and will give one time order of NSS 500cc. lactic trended down to 1.4 at 3am.
-Recheck on the patient, he is comfortably sleeping.
[2025-03-09] MEDS: OFIRMEV 100 IV (20:45)
[2025-03-09 20:55] LABS: Hematocrit 48.9 % (39.0-52.0); Hemoglobin 16.4 g/dL (13.0-18.0); Mean Corp Hgb Conc. 33.5 g/dL (33.0-37.0); Mean Corpuscular Hgb 31.3 pg (27.0-31.0); Mean Corpuscular Volume 93.3 fL (80.0-94.0); Mean Platelet Volume 9.9 fL (7.4-10.4); Platelet Count 124 10^3/uL (130-400); Red Blood Cell Count 5.24 10^6/uL (4.70-6.10); Red Cell Dist. Width 14.4 % (11.5-14.5); White Blood Cell Count 3.4 10^3/uL (4.8-10.8)
[2025-03-09 20:59] LABS: Lactic Acid 2.7 mmol/L (0.7-2.0)
[2025-03-09 21:05] LABS: Glucose - Point of Care 151 mg/dl (70-99)
[2025-03-09 21:14] LABS: Blood Urea Nitrogen 25 mg/dl (9-20); Carbon Dioxide 22 mmol/L (22-30); Chloride 105 mmol/L (98-107); Estimated Creatinine Clearance 82 ml/min; Glucose 169 mg/dl (70-99); Magnesium 1.8 mg/dl (1.6-2.3); Potassium 4.5 mmol/L (3.5-5.1); Sodium 136 mmol/L (135-145); eGFR > 60.00
[2025-03-09] MEDS: NSS 500 IV (21:23)
[2025-03-09 23:33] VITALS: BP 108/59
[2025-03-10 03:19] LABS: Lactic Acid 1.4 mmol/L (0.7-2.0)
[2025-03-10 06:54] VITALS: BP 102/58
[2025-03-10 07:53] LABS: Hematocrit 45.4 % (39.0-52.0); Hemoglobin 15.2 g/dL (13.0-18.0); Mean Corp Hgb Conc. 33.5 g/dL (33.0-37.0); Mean Corpuscular Hgb 30.9 pg (27.0-31.0); Mean Corpuscular Volume 92.3 fL (80.0-94.0); Mean Platelet Volume 9.7 fL (7.4-10.4); Platelet Count 132 10^3/uL (130-400); Red Blood Cell Count 4.92 10^6/uL (4.70-6.10); Red Cell Dist. Width 14.3 % (11.5-14.5); White Blood Cell Count 18.5 10^3/uL (4.8-10.8)
[2025-03-10 07:54] LABS: Glucose - Point of Care 175 mg/dl (70-99)
[2025-03-10 08:30] LABS: Blood Urea Nitrogen 29 mg/dl (9-20); Calcium 8.8 mg/dl (8.4-10.2); Carbon Dioxide 23 mmol/L (22-30); Chloride 106 mmol/L (98-107); Estimated Creatinine Clearance 75 ml/min; Glucose 172 mg/dl (70-99); Potassium 4.2 mmol/L (3.5-5.1); Sodium 139 mmol/L (135-145); eGFR > 60.00
[2025-03-10] MEDS: PT'S OWN INSULIN PUMP - NovoLOG SC (08:56)
[2025-03-10] MEDS: TOPROL XL 25 MG PO (08:57)
[2025-03-10] MEDS: AVAPRO 75 MG PO (08:57)
[2025-03-10] MEDS: ELIQUIS 5 MG PO ×2 (08:58→20:50)
[2025-03-10] MEDS: LIPITOR 20 MG PO (08:58)
[2025-03-10] MEDS: ZYLOPRIM 300 MG PO (08:58)
[2025-03-10] MEDS: FARXIGA 10 MG PO (08:58)
[2025-03-10] MEDS: ORETIC 25 MG PO (09:04)
--- NOTE | 2025-03-10 09:17 | PN.DE.MGMTRT ---
Insulin Management
- -
03/10/2025: Diabetes Management consult for insulin pump
Patient admitted 03/08 with weakness and falls. Patient known to me from previous hospital admissions and as outpatient. PMH: HTN, HLD, A-Fib, sleep apnea, IDDM. Routinely follows with Dr. Braden. Diabetes is managed via an insulin pump,
Medtronic 780 with NovoLog insulin and Quick Set infusion sets with Guardian CGM. In addition to pump patient also takes Jardiance 25 mg daily. A1C 7.8%, Cr 0.8. eGFR >60.
Pt is A/Ox3, sitting up in chair, offers no complaints, able to discuss diabetes care plan.
Patient is able to utilize his pump without difficulty. Glucose has been stable and in range 112 to 174.
Fasting glucose 172V, 175 POC, Cr 1.1, eGFR > 60.
Will make no change to pump settings.
Pump settings as follows:
12am 1.3 I:CHO ratio 4
3am 2.20 Correction factor 1:20
8am 2.0 Target: 12am 110 - 125
24 hour basal total 46.9 5am 90 - 110
10pm 110 - 125
Active insulin 2 hours.
Discussed with Nurse and went over process to retrieve hx and data of insulin bolus augmented by the pump as patient is not able to retrieve that info himself.
Pump work sheet at bedside and explained to pt.
Will cont to follow.
Diabetes History
- -
Type of Diabetes: 2 requiring insulin
Pre-Admission Diabetes Regimen
03/09/25 03/10/25
20:39 07:08
Creatinine 1.0 1.1
Insulin Pump Settings
IP Diabetes Regimen
03/09/25 03/09/25 03/09/25
12:31 16:42 20:39
Glucose 169 H
POC Glucose 169 H 105 H
03/09/25 03/10/25 03/10/25
21:03 07:08 07:52
Glucose 172 H
POC Glucose 151 H 175 H
Meal type: Breakfast
Amount consumed: 65%
Patient Education
--- NOTE | 2025-03-10 10:16 | W.PN.ID1 ---
Date of Service
Date of Service: March 10, 2025
Today's Communication
Narrow abx to cefazolin.
See below.
Assessment / Plan
# Citrobacter UTI
# Fever
# Leukocytosis
# CoNS bacteremia 1 of 2 sets = contaminant.
# PCN, sulfa allergies
- CT a/p: severe acute cystitis
- Narrow Ertapenem to cefazolin 2g IVq8.
-Trend Fever/wbc.
- At time of dc, will transition to doxycycline 100mg po bid through 03/21/25.
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
Diabetes mellitus
Neuropathy
Hypertension
Atrial fibrillation status post cardiac ablation
Lower extremity lymphedema, follows at lymphedema clinic
Venous insufficiency
Gout
Nephrolithiasis, history of lithotripsy
PAD
Sleep apnea
Appendectomy
Partial omentectomy
Laminectomies
Chief Complaint
-: UTI
Subjective / Review of Systems
Shaking chills last night.
Urinary frequency improved.
Vital Signs / Physical Exam
Vital Signs
Vital Signs
Temp Pulse Resp BP Pulse Ox
98.2 F 60 18 102/58 99
03/10/25 06:54 03/10/25 09:04 03/10/25 06:54 03/10/25 09:04 03/10/25 08:54
Selected Entries
03/09/25
20:20
Temp 102.2 F H
Physical Exam
Constitutional: No Acute Distress and Comfortable
Cardiovascular: Regular Rate and S1/S2
Pulmonary: Clear
Gastrointestinal: Soft, Non Tender and Non Distended
Genito-Urinary: Negative CVA Tenderness
Extremities: Edema (BLE lymphedema)
Neurological: AO x 3
Objective Data
Lab Data
Lab Results
03/10/25 07:08
03/10/25 07:08
Estimated Creat Clear 75 ml/min 03/10/25 07:08
Lactic Acid Cancelled 03/10/25 15:00
Total Bilirubin 2.0 mg/dl (0.2-1.3) H 03/07/25 22:37
AST 23 U/L (17-59) 03/07/25 22:37
ALT 19 U/L (0-50) 03/07/25 22:37
Alkaline Phosphatase 102 U/L (38-126) 03/07/25 22:37
Most recent labs reviewed.
Micro Results:
03/08/25 01:59 Urine Culture - Final
Urine Citrobacter koseri
03/08/25 01:59 Blood Culture - Preliminary
Blood/Venous Coagulase neg. staphylococcus
Gram Stain - Preliminary
03/07/25 23:58 Blood Culture - Preliminary
Blood/Venous No Growth in 48 hours- Final report to follow
03/08/25 CT a/p: SEVERE ACUTE CYSTITIS. 3 mm nonobstructing left intrarenal calculus. 3.8 cm benign-appearing, fat-containing, rim calcified subcapsular mass located along the posterior cortex of the midpole of the right kidney which appears
unchanged.
03/07/25 CXR: No acute cardiopulmonary process.
[2025-03-10 12:09] LABS: Glucose - Point of Care 184 mg/dl (70-99)
[2025-03-10] MEDS: PT'S OWN INSULIN PUMP - NovoLOG 3 UNIT SC (12:41)
[2025-03-10 13:11] VITALS: BP 114/57; BP 83/43
--- NOTE | 2025-03-10 13:32 | W.PN.HOSP.TC ---
Addendum entered and electronically signed by Ankush Mendiola MD 03/13/25 13:53:
Sepsis POA
Original Note:
Today's Communication/Plan
-
Continue with IV cefazolin
DC planning
Assessment / Plan
Assessment / Plan
IMPRESSION:
79-year-old male with past medical history significant for proximal atrial fibrillation on anticoagulation, hypertension, obesity, insulin-dependent diabetes, history of diabetic neuropathy with acquired lymphedema presents to the emergency
department after a fall at home. This occurred in the setting of recent episodes of urinary frequency. Denies BPH or kidney stones. Found to have a UTI in the emergency department with leukocytosis to 24,000. There is no skin findings and his
chest x-ray is clear. Patient presented secondary to a fall and weakness at home. There was no head strike.
PLAN:
UTI/weakness -leukocytosis, positive UA and had frequency of urine. No recent UTIs.
- CT of the abdomen pelvis shows cystitis and nonobstructive renal stones.
- Urine culture showing Citrobacter-antibiotics changed to IV cefazolin. Appreciate ID input
- Bladder scan did not show any high residuals.
- Improved with this frequency.
- Afebrile and improved white count compared to admission
Coagulase-negative staph bacteremia-suspect contamination.
Essential hypertension
- HCTZ, irbesartan
Paroxysmal A-fib -rate controlled with PVCs
-Continue metoprolol
- Continue eliquis
diabetes - Patient is on insulin pump
-Carb controlled diet
-Jardiance continued
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
DVT prophylaxis - On Eliquis
CODE STATUS - Full code
PT recommends rehab. Patient have reservations about it. Continue with PT while in hospital.
Anticipated Discharge: 24 - 48 hours
Subjective/Interval History
-
Date of Service: March 10, 2025
Feeling improved with the strength.
Improved frequency of urine.
No fever chills.
No nausea vomiting
Objective Data
-
Labs:
Laboratory Results
03/10/25
07:08
WBC 18.5 H
Hgb 15.2
Hct 45.4
Plt Count 132
Sodium 139
Potassium 4.2
Chloride 106
Carbon Dioxide 23
BUN 29 H
Creatinine 1.1
Glucose 172 H
Calcium 8.8
Vital Signs:
Vital Signs
Temp Pulse Resp BP Pulse Ox
98.2 F 60 18 102/58 99
03/10/25 06:54 03/10/25 09:04 03/10/25 06:54 03/10/25 09:04 03/10/25 08:54
I&O
03/09/25 03/10/25 03/11/25
06:59 06:59 06:59
Intake Total 480 / 480 1080 / 1080
Output Total 625 / 625 1175 / 1175
Balance -145 / -145 -95 / -95
Physical Exam
-
General: No Apparent Distress
Respiratory: Clear to Auscultation and Non Labored Respirations; Negative Accessory Resp Muscle Use
Cardiac: Regular Rhythm and S1/S2; Negative Tachycardic
Neuro: AO x 3
Psych: Calm; Negative Confused
Data Reviewed
-
Labs: Labs Reviewed by me
[2025-03-10] MEDS: FLUSH (NSS) 1 FLUSH IV (14:01)
[2025-03-10] MEDS: ANCEF 10 IV ×2 (14:01→21:05)
[2025-03-10 15:44] VITALS: BP 117/58
[2025-03-10 16:43] LABS: Glucose - Point of Care 182 mg/dl (70-99)
--- NOTE | 2025-03-10 16:44 | CM ---
Spoke with Alf in admissions at [facility] who stated that she would have availability for patient on Thursday. Will discuss with patient and his .
Plan: Case management will continue to follow and assist with discharge planning. SNF when stable and upon finding a bed. Will need to speak with patient's as well and send referral to [facility].
--- NOTE | 2025-03-10 16:52 | PTCARENOTE ---
Pt AAO x3, sl forgetful at times. BYRD; OOB to chair with assist x2/walker, pt ambulated in smith with PT/walker, tomasa well. VSS. On room air- pulse ox 98%, no SOB noted. Abd large, soft, tomasa PO. Pt has own insulin pump/BGM on abd. Voids in urinal
without difficulty. Resting comfortably at present, no c/o. at bedside. Will continue to monitor.
[2025-03-10] MEDS: PT'S OWN INSULIN PUMP - NovoLOG 2.75 UNIT SC (16:58)
[2025-03-10 21:25] LABS: Glucose - Point of Care 196 mg/dl (70-99)
[2025-03-10] MEDS: PT'S OWN INSULIN PUMP - NovoLOG 7 UNIT SC (21:31)
[2025-03-10 23:06] VITALS: BP 109/56
[2025-03-11 05:17] LABS: Hematocrit 44.6 % (39.0-52.0); Hemoglobin 14.8 g/dL (13.0-18.0); Mean Corp Hgb Conc. 33.2 g/dL (33.0-37.0); Mean Corpuscular Hgb 30.8 pg (27.0-31.0); Mean Corpuscular Volume 92.7 fL (80.0-94.0); Mean Platelet Volume 10.2 fL (7.4-10.4); Platelet Count 138 10^3/uL (130-400); Red Blood Cell Count 4.81 10^6/uL (4.70-6.10); Red Cell Dist. Width 14.6 % (11.5-14.5); White Blood Cell Count 13.1 10^3/uL (4.8-10.8)
[2025-03-11] MEDS: ANCEF 10 IV ×2 (05:21→14:27)
[2025-03-11 07:11] LABS: Glucose - Point of Care 143 mg/dl (70-99)
[2025-03-11 07:34] VITALS: BP 109/55
[2025-03-11] MEDS: LIPITOR 20 MG PO (08:15)
[2025-03-11] MEDS: FARXIGA 10 MG PO (08:15)
[2025-03-11] MEDS: TOPROL XL 25 MG PO (08:16)
[2025-03-11] MEDS: AVAPRO 75 MG PO (08:16)
[2025-03-11] MEDS: ZYLOPRIM 300 MG PO (08:16)
[2025-03-11] MEDS: ELIQUIS 5 MG PO (08:16)
[2025-03-11] MEDS: SENOKOT-S 1 TABLET PO (08:17)
[2025-03-11] MEDS: DESENEX/MITRAZOL/ZEASORB 1 APPLIC TOPICAL (08:18)
--- NOTE | 2025-03-11 09:58 | W.PN.HOSP.TC ---
Today's Communication/Plan
-
d/c
Assessment / Plan
Assessment / Plan
pt is a 79 year old male
Citrobacter koseri UTI with weakness--weakness -leukocytosis, positive UA and had frequency of urine. No recent UTIs- CT of the abdomen pelvis shows cystitis and nonobstructive renal stones- Urine culture showing Citrobacter-antibiotics changed to
IV cefazolin. Appreciate ID input--change to doxy at d/c
Coagulase-negative staph bacteremia-suspect contamination.
Essential hypertension- HCTZ, irbesartan
Paroxysmal A-fib -rate controlled with PVCs-Continue metoprolol- Continue eliquis
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
DVT proph - On Eliquis
CODE STATUS - Full code
home health
Anticipated Discharge: Today
Subjective/Interval History
-
Date of Service: March 11, 2025
pt anxious to go home
Objective Data
-
Labs:
Laboratory Results
03/11/25
04:17
WBC 13.1 H
Hgb 14.8
Hct 44.6
Plt Count 138
Vital Signs:
max temp for 24 hours
03/10/25
23:06
Temp 98.8 F
Vital Signs
Temp Pulse Resp BP Pulse Ox
98.3 F 60 18 109/55 99
03/11/25 07:34 03/11/25 08:16 03/11/25 07:34 03/11/25 08:16 03/11/25 07:34
I&O
03/10/25 03/11/25 03/12/25
06:59 06:59 06:59
Intake Total 1080 / 1080 720 / 720 240 / 240
Output Total 1175 / 1175 1250 / 1250 225 / 225
Balance -95 / -95 -530 / -530
Review of Systems
-
All other systems: Reviewed and negative
Physical Exam
-
General: Well Developed, Well Nourished and No Apparent Distress
HEENT: Normocephalic and Atraumatic
Respiratory: Clear to Auscultation; Negative Wheezes or Rhonchi
Cardiac: Regular Rhythm; Negative Murmur
GI: Soft, Nontender, Nondistended and Normal Bowel Sounds
Musculoskeletal: No Clubbing and No Cyanosis; Negative No Edema (edema bilateral LE left > right with left pedal edema)
Neuro: Awake and Alert
Psych: Calm
[2025-03-11] MEDS: PT'S OWN INSULIN PUMP - NovoLOG 1.375 UNIT SC (10:30)
--- NOTE | 2025-03-11 11:31 | CM ---
Addendum entered by TWYLA Almanza 03/11/25 16:27:
PT saw patient again and stated that he is an assist of 1, patient's agreeable to taking him home. Referral cancelled to [facility]. Spoke with Aydee from [facility] who stated that patient has not been homebound and he was active with their services
prior to his admission but will be unable to go back out and see him if he continues to go out into the community. 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
Addendum entered by TWYLA Almanza 03/11/25 16:12:
Spoke with nursing staff and they reported that patient has been a two person assist all last night and today. Patient's stated that she does not feel that she can safely manage him at home. Patient not agreeable to SNF. He stated that he is a
karlos and has a friend in the administration at [facility] so he would feel comfortable there. Patient and his were unable/unwilling to provide additional choices. Patient will stay with the idea that he will go to skilled after weekend.
Will make referral for [facility].
Attending updated as well as RN. PT stated that she will go in to see patient today to again evaluate.
Original Note:
Spoke with attending who stated that patient is cleared for discharge. Rec from PT is home health. Patient stated that he would like . Will make referral. Patient signed IMM, it was reviewed and put on chart. Patient's will take patient home.
Plan: Case management will continue to follow and assist with discharge planning. Home with [facility].
[2025-03-11 11:41] LABS: Glucose - Point of Care 169 mg/dl (70-99)
--- NOTE | 2025-03-11 13:34 | W.DCSUMMARY ---
Discharge Summary
Discharge Data
Date of Admission: 03/08/25
Date of Discharge: 03/11/25
-
Pending Results: No
Hospital Course
Primary care physician : Oliver Talley
Principal Discharge diagnosis : Citrobacter koseri urinary tract infection
Chronic Discharge diagnosis : Essential hypertension, paroxysmal atrial fibrillation, type 2 diabetes
Hospital Course : Patient was a 79-year-old male who presented to the emergency department after having a fall at home. He was complaining of weakness and patient stated he had increased urinary frequency. He denied dysuria and flank pain. He
denied nausea or vomiting. He was recently in the hospital for cellulitis and was treated with IV antibiotics. He was also seen in the lymphedema clinic where they are trying to manipulate his fluid status however there was concern for his
weakness and the possibility of developing an infection. Patient was so weak when he tried walking he fell. EMS was called and the patient was brought to the emergency department. Patient was admitted.
Problem #1: Citrobacter koseri urinary tract infection with developing sepsis during his admission. Patient was admitted and started on IV antibiotics. Infectious disease was consulted and the patient did have urine culture positive for
Citrobacter koseri. CAT scan of the abdomen pelvis on admission showed cystitis and nonobstructive renal stones. Patient did have a bump in his lactic acid to 2.7 which trended down to 1.4 after IV fluids. Antibiotics were downgraded to IV
cefazolin and eventually to oral doxycycline to transition at discharge. White blood cell count on admission was 24,000 down to 13.1 thousand on the day of discharge.
Problem #2: All other medical issues. These include Essential hypertension, paroxysmal atrial fibrillation, type 2 diabetes mellitus with insulin pump. These medical issues were stable during his hospitalization. Medications were continued as
able.
Patient is stable for discharge home at this time. If there are any questions regarding this dictation or his hospital stay, please do not hesitate to call. Our office number is [phone].
Time for discharge 31 minutes.
Important imaging findings :
CT SCAN ABDOMEN/PELVIS IMPRESSION:
1. SEVERE ACUTE CYSTITIS.
2. Moderate chronic bilateral renal disease.
3. 3 mm nonobstructing left intrarenal calculus.
4. 3.8 cm benign-appearing, fat-containing, rim calcified subcapsular mass located along the posterior cortex of the midpole of the right kidney which appears unchanged.
5. Cholelithiasis.
6. Left-sided infrarenal IVC.
7. Previous multilevel lumbar laminectomies.
8. Severe bilateral facet joint arthrosis at L4/L5.
9. 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
Discharge Plan
-
Patient Disposition: Home with Home Care
Discharge Diagnosis/Procedures: Citrobacter koseri UTI, essential hypertension, paroxysmal atrial fibrillation, type 2 diabetes mellitus
Condition: Good
Diet: Diabetic, Carb Controlled
Activity: As tolerated
Driving Restrictions: As prior to admission
Bathing Restrictions: None
Other Services: VN, PT and OT
Referrals:
Oliver Talley MD [Family Provider, Internal Medicine] - in less than 1 week
Prescriptions:
New
acetaminophen 325 mg Tablet
650 mg PO Q4HPRN PRN (Reason: mild pain/HAIR/temp> 100.4F) Qty: 0 0RF
doxycycline monohydrate 100 mg capsule
100 mg PO BID 11 Days Qty: 22 0RF
Rx Instructions:
take through 03/21/25
Continued
allopurinol 300 MG tablet
300 mg PO DAILY
hydrochlorothiazide 25 MG tablet
25 mg PO MOWEFR
Jardiance 25 MG tablet
25 mg PO DAILY
Insulin Pump [Patient's Own Insulin Pump:] 1 UNITS Pump.Resvr
0 ea SC .CONTINUOUS
Rx Instructions:
09/16/22: Pt uses Novolog U-100
atorvastatin 20 mg Tablet
20 mg PO DAILY
Eliquis 5 mg Tablet
5 mg PO BID
irbesartan 75 mg tablet
75 mg PO DAILY
metoprolol succinate 25 mg tablet extended release 24 hr
25 mg PO DAILY
Discharge Orders:
Discharge Patient (As Directed); Ordered 03/11/25
Ordered By: Breanna Louie
Discharge Date and Time
Print Language: AZERI
[2025-03-11 15:18] VITALS: BP 92/49
[2025-03-11 16:24] VITALS: BP 100/48; PULSE 70; O2SAT 97
[2025-03-11 16:57] VITALS: BP 101/56
== END 2025-03-11 17:44 | disposition home health service (06) | DRG 872 ==
LOC: 4 EAST ACU 04:48
PROVIDERS: Internal Medicine; Nurse Practitioner Family; Student in an Organized Health Care Education/Training Program; ADMITTING PHYSICIAN Internal Medicine; ATTENDING PHYSICIAN Internal Medicine; CONSULT PHYSICIAN Internal Medicine Infectious Disease; EMERGENCY PHYSICIAN Student in an Organized Health Care Education/Training Program; FAMILY PHYSICIAN Internal Medicine
DX: A41.9 Sepsis, unspecified organism (principal); N30.00 Acute cystitis without hematuria; E11.40 Type 2 diabetes mellitus with diabetic neuropathy, unspecified; I10 Essential (primary) hypertension; I48.0 Paroxysmal atrial fibrillation; I89.0 Lymphedema, not elsewhere classified; G47.33 Obstructive sleep apnea (adult) (pediatric); E11.51 Type 2 diabetes mellitus with diabetic peripheral angiopathy without gangrene; I49.3 Ventricular premature depolarization; K21.9 Gastro-esophageal reflux disease without esophagitis; M10.9 Gout, unspecified; E66.9 Obesity, unspecified; W19.XXXA Unspecified fall, initial encounter; E78.00 Pure hypercholesterolemia, unspecified; I87.2 Venous insufficiency (chronic) (peripheral); B96.89 Other specified bacterial agents as the cause of diseases classified elsewhere; Z87.442 Personal history of urinary calculi; Z91.81 History of falling; Z91.199 Patient's noncompliance with other medical treatment and regimen due to unspecified reason; Z79.01 Long term (current) use of anticoagulants; Z79.4 Long term (current) use of insulin
CPT/HCPCS: 71045; 74176; 80048; 80053; 81003; 81015; 82962; 83605; 83735; 84484; 85025; 85027; 86803; 87040; 87077; 87086; 87150; 87186; 87205; 93005; 96374; 96375; 97116; 97163; 97530; 99285; J1335

== ENCOUNTER → 2025-03-29 06:08 | Outpatient (REF) | payer MEDICARE, SELFPAY ==
[2025-03-29 10:02] LABS: ALT (SGPT) 63 U/L (0-50); AST (SGOT) 44 U/L (17-59); Albumin 3.9 g/dl (3.5-5.0); Alkaline Phosphatase 69 U/L (38-126); Blood Urea Nitrogen 20 mg/dl (9-20); Calcium 9.8 mg/dl (8.4-10.2); Carbon Dioxide 29 mmol/L (22-30); Chloride 111 mmol/L (98-107); Glucose 135 mg/dl (70-99); HDL Cholesterol 38 mg/dl; LDL Cholesterol, Calculated 59 mg/dl; Potassium 4.7 mmol/L (3.5-5.1); Sodium 141 mmol/L (135-145); Total Protein 6.5 g/dl (6.3-8.2); Very Low Density Lipoprotein 18 mg/dl (0-30); eGFR > 60.00
[2025-03-29 10:28] LABS: TSH 3.20 uIU/ml (0.47-4.68)
[2025-03-29 10:41] LABS: Microalb - Urine Creatinine 69.000 mg/dl
[2025-03-29 10:44] LABS: Microalbumin, Random Urine 1.7 mg/dl (0.6-1.7)
[2025-03-29 12:05] LABS: Glycohemoglobin (HgbA1c) 7.7 % (4.0-5.6)
== END ==
LOC: HWLAB 06:08
PROVIDERS: ATTENDING PHYSICIAN Internal Medicine Endocrinology, Diabetes & Metabolism; FAMILY PHYSICIAN Internal Medicine
DX: E11.65 Type 2 diabetes mellitus with hyperglycemia (principal)
CPT/HCPCS: 36415; 80053; 80061; 82043; 82570; 83036; 84443

== ENCOUNTER 2025-05-08 07:15 | Outpatient (RCR) | payer MEDICARE, SELFPAY | END 2025-05-08 23:59 | disposition home or self-care (01) | LOC: RPT 07:15 | PROVIDERS: ATTENDING PHYSICIAN Podiatrist Foot & Ankle Surgery; FAMILY PHYSICIAN Internal Medicine | DX: I89.0 Lymphedema, not elsewhere classified (principal); Z73.6 Limitation of activities due to disability; R26.2 Difficulty in walking, not elsewhere classified | CPT/HCPCS: 97162; 97530 ==

== ENCOUNTER 2025-05-30 12:39 | Outpatient (RCR) | payer MEDICARE, SELFPAY | END 2025-05-30 23:59 | disposition home or self-care (01) | LOC: RPT 12:39 | PROVIDERS: ATTENDING PHYSICIAN Podiatrist Foot & Ankle Surgery; FAMILY PHYSICIAN Internal Medicine | DX: I89.0 Lymphedema, not elsewhere classified (principal); Z73.6 Limitation of activities due to disability; R26.2 Difficulty in walking, not elsewhere classified | CPT/HCPCS: 97530 ==

== ENCOUNTER → 2025-06-09 09:03 | Outpatient (REF) | payer MEDICARE, SELFPAY ==
[2025-06-09 12:09] LABS: ALT (SGPT) 14 U/L (0-50); AST (SGOT) 16 U/L (17-59); Albumin 3.9 g/dl (3.5-5.0); Alkaline Phosphatase 90 U/L (38-126); Blood Urea Nitrogen 20 mg/dl (9-20); Calcium 9.4 mg/dl (8.4-10.2); Carbon Dioxide 27 mmol/L (22-30); Chloride 107 mmol/L (98-107); Glucose 131 mg/dl (70-99); HDL Cholesterol 45 mg/dl; LDL Cholesterol, Calculated 119 mg/dl; Potassium 4.1 mmol/L (3.5-5.1); Sodium 140 mmol/L (135-145); Total Protein 6.9 g/dl (6.3-8.2); Very Low Density Lipoprotein 17 mg/dl (0-30); eGFR > 60.00
[2025-06-09 12:24] LABS: Microalb - Urine Creatinine 305.900 mg/dl
[2025-06-09 12:35] LABS: TSH 2.17 uIU/ml (0.47-4.68)
[2025-06-09 13:13] LABS: Microalbumin, Random Urine 32.9 mg/dl (0.6-1.7)
[2025-06-09 14:23] LABS: Glycohemoglobin (HgbA1c) 7.6 % (4.0-5.6)
== END ==
LOC: HWLAB 09:03
PROVIDERS: ATTENDING PHYSICIAN Internal Medicine Endocrinology, Diabetes & Metabolism; FAMILY PHYSICIAN Internal Medicine
DX: E11.65 Type 2 diabetes mellitus with hyperglycemia (principal)
CPT/HCPCS: 36415; 80053; 80061; 82043; 82570; 83036; 84443